=== PATIENT | female | born 1935 | race Caucasian/White ===

== ENCOUNTER → 2016-12-17 | Outpatient (REF) | payer MEDICARE, OTHER ==
[~2016-12-17] MED LIST: ASPI81TA85 PO; AZEL0.1S3; B-1210009 PO; BACITAB3 PO; BACL5TA PO; CALC600T10 PO; COMBAER6 INH; DOCU10CA PO; DOKTAB2 PO; ELES0.05 OU; FISH1000 PO; FLON0.054; FURO20TA2 PO; IPRASOL4 NEB; K-TA10TA2 PO; KLOR1TAB69 PO; LEVOTAB10 PO; META1TAB19 PO; META800T82 PO; MULTCAP PO; NEUR100C PO; NORCOTAB PO; OFLO1DRO3 AU; OMEP40CA2 PO; PEG1POW PO; PERC5TAB6 PO; PERCOCET PO; PRED10TA PO; PRED5TA PO; PRIL20CA9 PO; PRIL20TA2 PO; PROC2.5C PR; RANI150T PO; RANI15TA PO; REST0.05 OU; SENN8.6T76 PO; SKEL-29 PO; TUMS500C PO; VITA-193 PO; VITA100066 PO; VITMTA PO; ZITHTAB PO
== END ==
LOC: M LAB REF 16:30
PROVIDERS: ATTEND Internal Medicine Medical Oncology
DX: D64.9 Anemia, unspecified (principal); C79.31 Secondary malignant neoplasm of brain; C79.51 Secondary malignant neoplasm of bone; C78.7 Secondary malignant neoplasm of liver and intrahepatic bile duct; C34.11 Malignant neoplasm of upper lobe, right bronchus or lung; Z79.899 Other long term (current) drug therapy

== ENCOUNTER → 2016-12-22 | Outpatient (CLI) | payer MEDICARE, OTHER ==
--- NOTE | 2016-12-22 15:34 | REP ---
MR BRAIN WITHOUT AND WITH CONTRAST: HISTORY: Lung carcinoma. CONTRAST: ProHance 10 mL. COMPARISON: 08/20/2016. Diffuse confluent increased signal intensity on T2-weighted images is present in the periventricular and subcortical white matter. This is secondary to chemo and/or radiation therapy. Small areas of increased signal intensity on T2-weighted images are present in the maye. This represents small vessel ischemic disease. There is no intraparenchymal hemorrhage, infarct, mass, or midline shift. There is no abnormal enhancement. A small developmental venous anomaly is present in the right frontal lobe. The ventricular system and cortical sulci are dilated consistent with mild volume loss. There is no extracerebral collection. The sinuses are clear. IMPRESSION:1. There are no metastatic lesions. 2. There is diffuse confluent increased signal intensity in the periventricular and subcortical white matter. This is secondary to chemo and/or radiation therapy. 3. Mild volume loss. Signed by Gonsalo Mcnally MD 12/22/2016 03:36 P
== END ==
LOC: M RAD 13:41
PROVIDERS: ATTEND Nurse Practitioner Family
DX: C34.90 Malignant neoplasm of unspecified part of unspecified bronchus or lung (principal); H53.2 Diplopia
CPT/HCPCS: 70553; A9576

== ENCOUNTER → 2017-01-06 | Outpatient (CLI) | payer MEDICARE, OTHER ==
[~2017-01-06] MED LIST changes: +ISOVUE-370 76% 100ML VIAL (Q9967) As Ordered ONE
--- NOTE | 2017-01-06 12:20 | REP ---
CT STUDY OF THE CHEST WITH IV CONTRAST: HISTORY: Metastatic lung carcinoma. Leg pain. Also, there is apparently a history of lymphoma. Comparison chest CT study is from April 02, 2016. Comparison PET/CT study is from August 27, 2016. CT CONTRAST DOSE: 75 mL of intravenous Isovue-[address] FINDINGS: There is chronic pleuroparenchymal fibrosis, segmental atelectasis, with air bronchograms and some bronchiectasis in the right upper lobe at the apex. Some anterior pleuroparenchymal fibrosis is seen on the right as well. These findings are unchanged. No mass lesion is observed. No pulmonary mass or nodule is observed. There are several ununited or healed rib fractures in the left chest posteriorly. No bony destructive lesion is seen. No hilar or mediastinal mass or adenopathy is observed. No adrenal masses seen. No hepatic lesion is observed. The visualized upper abdominal structures are unremarkable. Mild vascular calcification is seen. Osteoporotic wedging is noted in two lower thoracic vertebrae, unchanged. IMPRESSION: Chronic fibrosis and atelectasis with bronchiectasis right upper lobe at the apex, unchanged. Wedge compression osteoporotic fracture deformities at T10 and L1. These are unchanged. No evidence of mass or adenopathy. Signed by Vito Louis MD 01/06/2017 03:21 P
--- NOTE | 2017-01-06 14:58 | REP ---
WHOLE BODY BONE SCAN: Following the intravenous administration of 21.6 mCi of technetium-99m MDP, patient's whole body is imaged in the anterior and posterior projections. Oblique images of the thoracic and pelvis regions are performed as well as lateral views of the calvarium and feet. Comparison 03/15/2015. There are multiple new bilateral foci of increased uptake in the ribs. Two foci are seen posteriorly in the left 10th rib as well as the left 11th rib. There is a new focus in the anterior end of the left 2nd rib. There are new foci in the right anterior 4th-7th ribs. These are all consistent with rib fractures seen on today's CT scan. There are compression fractures of T10, L1, and L4. There is increased uptake in the left mandible which is of uncertain significance. This may be related to the patient's dentition. Arthritic uptake is seen in the hands and feet. No other abnormal uptake is seen. Renal and bladder activity are seen. IMPRESSION: No compelling evidence for metastatic disease. Increased uptake in the left mandible is likely related to the patient's dentition. Multiple bilateral foci of increased uptake in the ribs compatible with rib fractures. There also to be osteoporotic compression fractures of T10, L1, and L4. Signed by Arthur Hogan MD 01/06/2017 08:12 P
== END ==
LOC: M RAD 10:18
PROVIDERS: ATTEND Nurse Practitioner Family
DX: C34.90 Malignant neoplasm of unspecified part of unspecified bronchus or lung (principal); M79.606 Pain in leg, unspecified
CPT/HCPCS: 71260; 78306; A9503; Q9967

== ENCOUNTER 2017-03-08 18:32 | Inpatient (IN) | payer MEDICARE, OTHER ==
[~2017-03-08] VITALS: Ht 152.4 cm; Wt 42.5 kg
[~2017-03-08 18:32] MED LIST changes: -ISOVUE-370 76% 100ML VIAL (Q9967) As Ordered ONE
[2017-03-08] MEDS ORDERED: PROC5TA PO (18:56)
[2017-03-08] MEDS ORDERED: LEVOTAB10 PO (18:56)
[2017-03-08 19:07] LABS: BASO # 0.1 K/mm3 (0.0-0.2); BASO % 0.4 % (0.0-1.0); EOS # 0.1 K/mm3 (0.0-0.50); EOS % 0.6 % (0.0-3.0); LARGE UNSTAINED CELL # 0.1 K/mm3 (0.0-0.4); LARGE UNSTAINED CELL % 0.8 % (0.0-4.0); LYMPH # 0.7 K/mm3 (1.5-4.5); LYMPH % 4.6 % (24.0-44.0); MEAN CORPUSCULAR HEMOGLOBIN 27.1 pg (27.0-33.0); MEAN CORPUSCULAR HGB CONC 31.6 g/dl (32.0-36.5); MEAN CORPUSCULAR VOLUME 85.6 fl (80.0-96.0); MONO # 0.9 K/mm3 (0.0-0.8); MONO % 6.7 % (0.0-5.0); NEUTROPHILS % 86.9 % (36.0-66.0); PLATELET COUNT, AUTOMATED 402 k/mm3 (150-450); RED CELL DISTRIBUTION WIDTH 13.7 % (11.5-14.5); WHITE BLOOD COUNT 13.8 K/mm3 (4.0-10.0)
[2017-03-08 19:13] LABS: INR 0.94
[2017-03-08 19:17] LABS: ANION GAP 7 MEQ/L (8-16); BLOOD UREA NITROGEN 13 MG/DL (7-18); CALCIUM LEVEL 8.3 MG/DL (8.8-10.2); CARBON DIOXIDE LEVEL 25 MEQ/L (21-32); CHLORIDE LEVEL 97 MEQ/L (98-107); CREATININE FOR GFR 0.49 MG/DL (0.55-1.02); GLOMERULAR FILTRATION RATE > 60.0 (>39); GLUCOSE, FASTING 87 MG/DL (83-110); POTASSIUM SERUM 4.4 MEQ/L (3.5-5.1); SODIUM LEVEL 129 MEQ/L (136-145)
--- NOTE | 2017-03-08 19:30 | REPUSA ---
CT of the head Clinical history: Headache. Comparison: 04/20/2016. Protocol: Multiple axial CT images obtained with 5 mm slice thickness were obtained through the head without administration of contrast. Findings: There are new extra-axial fluid collections bilaterally, consistent with chronic hygromas. These were not seen on the prior study. On the left side, in this fluid collection, there is a minima l amount of hyperdense material which could represent subacute/acute blood This is most prominent in the superior aspect. No intraparenchymal bleedingis noted. The ventricles and sulci are symmetric bu t prominent in size bilaterally. There are periventricular areas of low attenuation throughout the de ep white matter. There is no midline shift, mass effect, or extra-axial fluid collection. The osseous structures are unremarkable. The visualized paranasal sinuses and mastoid air cells are clear. Impression: 1.. Bilateral chronic hygromas, which is new since the prior study of 2016. However, hyperdense mater ial on the left suggest acute/subacute epidural blood within the prior extra-axial fluid collection. Close interval follow-up is recommended. 2. No evidence of intraparenchymal acute hemorrhage or infarct. Findings are consistent with severe a ge-related atrophy and chronic small vessel ischemic disease. ER physician was notified of these findings at 7:20 PM on 03/08/2017.
[2017-03-08] MEDS ORDERED: AZITHROMYCIN INJ 500 MG, VIAL MATE ADAPTER 1 EACH in D5W 250 ML IV ONE (20:15)
[2017-03-08] MEDS ORDERED: cefTRIAXone SOD 2 GM in D5W MINI-BAG PLUS 50 ML IV ONE (20:15)
[2017-03-08] MEDS: predniSONE 5 MG TAB PO SCH (21:00)
[2017-03-08] MEDS: GABAPENTIN 100 MG CAP PO SCH (21:00)
[2017-03-08] MEDS: SENOKOT S TAB PO SCH ×2 (21:00→22:45)
[2017-03-08 21:12] LABS: OSMOLALITY URINE 701 MOSM/KG (500-800)
[2017-03-08] MEDS ORDERED: ACETAMINOPHEN TAB 650MG DOSE (2X325MG) PO PRN (21:15)
[2017-03-08] MEDS ORDERED: LORazepam 2 MG/ML VIAL (J2060) IV STA (21:29)
[2017-03-08] MEDS ORDERED: ALEV220T26 PO (21:47)
[2017-03-08] MEDS ORDERED: PERC5TAB6 PO (21:47)
[2017-03-08] MEDS ORDERED: REST0.05 OU (21:51)
[2017-03-08] MEDS ORDERED: OCUVTAB PO (21:51)
[2017-03-08] MEDS ORDERED: PERCOCET 5MG/325MG TAB PO PRN (22:00)
[2017-03-08] MEDS ORDERED: IPRATROPIUM 0.5MG/ALBUTEROL 2.5MG INH SOL UD 3ML (DUONEB)(J7620) NEB PRN (22:45)
--- NOTE | 2017-03-08 22:50 | REPUSA ---
MRI of the brain Clinical history: Hygromas, possible hemorrhage. Technique: Multiecho multiplanar MRI images of the brain were obtained without administration of cont rast. Diffusion weighted images with ADC mapping was also obtained. Comparison: CT, 03/08/2017. Findings: Severe motion artifact significantly limits evaluation of fine detail on this study. There is no evid ence of restricted diffusion on diffusion weighted imaging. Evaluation of the bilateral cystic hygro mas described on the prior CT examination is highly limited because of this motion artifact. The vent ricles appear grossly symmetric. Chronic small vessel ischemic changes with T2 hyperintensity in the subcortical white matter is seen. Impression: Severely Limited study as described because of motion artifact. No evidence of acute infa rct. Otherwise suboptimal examination.
[2017-03-08 22:53] VITALS: BP 160/87
[2017-03-09] MEDS: ACETAMINOPHEN 650 MG SUPP PR PRN ×2 (01:25→21:51)
--- NOTE | 2017-03-09 05:02 | HPE ---
DATE OF ADMISSION: 03/08/2017 ONCOLOGIST: Dr. Caldwell. PRIMARY CARE PROVIDER: Ibeth Watson DO. CHIEF COMPLAINT: Patient brought in by family because of confusion, altered mental status and garbled and mumbled speech at around 5 p.m. today. PAST MEDICAL HISTORY: 1. 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 2. Rheumatoid arthritis. 3. Irritable bowel syndrome. 4. Compression fractures of the lumbar spine and the thoracic spine T10, L1 and L4. 5. Gastroesophageal reflux disease. 6. Chronic obstructive pulmonary disease (COPD). 7. Chronic anemia. 8. History of recurrent falls with difficulty in ambulation. 9. Osteoporosis. 10. Chronic pain with narcotic dependence. 11. Neuropathy. 12. Vitamin B12 deficiency. HISTORY OF PRESENT ILLNESS: This is a 81-year-old female who was in her usual state of health until this morning when she was last seen by friend and she was noted to have a normal breakfast and read her paper as usual. Then she was alone in the house. She was later seen by family members at around 5 p.m. when they returned home and they found her to be confused having garbled and mumbled speech. When asked questions, she was talking about some unrelated things, so they were concerned about her having a stroke, so was brought in to the emergency room. In the emergency department (ED), patient had a CT scan of the brain done, which showed bilateral hygromas, chronic, with some possible chronic epidural bleed, which was new compared to previous MRI earlier in the year, in December, and previous CT scan in 2016. Dr. Gil from neurosurgery was consulted regarding these new findings and as per his opinion, this was not responsible for her acute altered mentation and did not need any surgical intervention at this point. There was no evidence of intraparenchymal hemorrhage or infarct. Patient's laboratory data was significant for chronic hyponatremia of 129, mild leukocytosis of 13.8 and an elevated C-reactive protein (CRP) of 11.9. Patient's urinalysis (UA) showed 28 red blood cells (RBCs) with only 1 white blood cell (WBC). The patient is being admitted to the hospitalist service for altered mental status to rule out stroke by further MRI/MRA, to rule out any underlying infection causing altered mental status, also rule out any new brain metastases. PAST SURGICAL HISTORY: 1. Bilateral carpal tunnel repair. 2. Liver biopsy in 2010. 3. Cystoscopy. 4. Tonsillectomy. 5. Dilatation and curettage. 6. Cataract surgery. ALLERGIES: To NICKEL. HOME MEDICATIONS: - albuterol ipratropium one solution nebulizer every 2 hours as needed - aspirin 81 mg daily - calcium 600 mg daily - Tums 2000 mg by mouth three times a day - cholecalciferol 1000 units by mouth daily - cyanocobalamin 1000 mcg by mouth once a week - docusate plus 50/8.6 one tablet twice a day - Lasix 20 mg by mouth daily as needed for swelling - gabapentin 100 mg by mouth three times a day - levocetirizine 5 mg by mouth daily - multivitamins one tablet by mouth daily - omeprazole 40 mg by mouth twice a day - oxycodone/acetaminophen 5/325 one tablet by mouth every 4 hours as needed for pain - potassium chloride 10 mEq by mouth daily - prednisone 5 mg by mouth twice a day - prochlorperazine 10 mg by mouth as needed for nausea SOCIAL HISTORY: Patient denies any smoking, any recreational drug use or any alcohol use. FAMILY HISTORY: Not contributory. REVIEW OF SYSTEMS: Patient denied any fever or chills. Patient does complain of a cough going on for about a week. Denied any expectoration. Denied any abdominal pain, nausea, vomiting or diarrhea. Denied any dysuria. Does have chronic back pain. Does have chronic difficulty in ambulation with recurrent falls. The last fall was about 7 days ago. She has some lacerations on both the shins, which have scabbed over now. PHYSICAL EXAMINATION: VITAL SIGNS: Temperature 97, pulse 95, respiratory rate 18, blood pressure 151/68, pulse oximetry 96% in room air. GENERAL: Patient awake, alert, oriented to place, person, and time. HEENT: Normocephalic, atraumatic. Dry mucous membranes. Anicteric eyes. CHEST: There are some basal crackles, otherwise clear to auscultation. CARDIOVASCULAR: S1, S2 regular. No rub, murmur or gallop. ABDOMEN: Soft, nontender, bowel sounds present. EXTREMITIES: No edema. LABORATORY DATA: WBC 13.8, hemoglobin 10.7, platelets 402. Sodium 129, potassium 4.4, chloride 97, bicarbonate 25, BUN 13, creatinine 0.4, glucose 87, lactic 0.7, calcium 8.3. Cardiac enzymes are negative. CRP 11.9. Urinalysis shows 28 RBCs and 1 WBC. Blood cultures and urine cultures have been ordered. Chest x-ray did not show any acute infiltrates. Head CT as mentioned above. ASSESSMENT AND PLAN: This is a 81-year-old female admitted for altered mental status. PLAN: 1. Acute metabolic encephalopathy. We need to rule out infection, rule out stroke and rule out new brain metastases. Patient has been ordered MRI/MRA of the brain. Patient also has been ordered blood cultures and urine cultures. Will empirically cover with ceftriaxone and azithromycin at this point. Patient's CT scan shows new bilateral subdural hygromas. For this, neurosurgery has been consulted and as per neurosurgeon, this is not causing her acute change in mental status and does not need to be surgically drained at this point. 2. Hyponatremia. This is chronic, has been present for at least 2 years and is very mild and is probably not causing her acute alteration of mental status. However, will hold diuretics, that is Lasix for now and put her on fluid restriction. Will also hold naproxen. 3. Rheumatoid arthritis. Will continue with prednisone, pain control with oxycodone/acetaminophen. 4. Neuropathy. Will continue with gabapentin. 5. Chronic obstructive pulmonary disease (COPD). Will continue with as needed albuterol ipratropium inhalation. 6. History of small cell lung cancer with metastases (METS) to brain and liver. Now seems to be in remission, had radiation, chemotherapy about 4-5 years ago. 7. Gastroesophageal reflux disease (GERD). Will continue with omeprazole. 8. Chronic back pain with vertebral compression fractures. Will continue with pain control with oxycodone/acetaminophen. 9. Bilateral chronic hygromas of the brain with possibly subacute epidural blood on the left. To be followed up by neurosurgery and will follow their recommendation. 10. Deep venous thrombosis (DVT) prophylaxis has been ordered. 11. Gastrointestinal (GI) prophylaxis has been ordered.
[2017-03-09 05:09] VITALS: BP 128/71
[2017-03-09 05:34] LABS: BASO % 0.3 % (0.0-1.0); EOS % 0.3 % (0.0-3.0); LARGE UNSTAINED CELL # 0.1 K/mm3 (0.0-0.4); LYMPH # 0.6 K/mm3 (1.5-4.5); MEAN CORPUSCULAR HEMOGLOBIN 27.4 pg (27.0-33.0); MEAN CORPUSCULAR HGB CONC 32.1 g/dl (32.0-36.5); MEAN CORPUSCULAR VOLUME 85.3 fl (80.0-96.0); MONO # 0.8 K/mm3 (0.0-0.8); MONO % 7.4 % (0.0-5.0); NEUTROPHILS # 9.6 K/mm3 (1.8-7.7); PLATELET COUNT, AUTOMATED 370 k/mm3 (150-450); RED CELL DISTRIBUTION WIDTH 13.4 % (11.5-14.5); WHITE BLOOD COUNT 11.1 K/mm3 (4.0-10.0)
[2017-03-09 05:47] LABS: ANION GAP 9 MEQ/L (8-16); BLOOD UREA NITROGEN 12 MG/DL (7-18); CALCIUM LEVEL 8.3 MG/DL (8.8-10.2); CARBON DIOXIDE LEVEL 26 MEQ/L (21-32); CHLORIDE LEVEL 94 MEQ/L (98-107); CREATININE FOR GFR 0.57 MG/DL (0.55-1.02); GLOMERULAR FILTRATION RATE > 60.0 (>39); GLUCOSE, FASTING 101 MG/DL (83-110); POTASSIUM SERUM 3.9 MEQ/L (3.5-5.1); SODIUM LEVEL 129 MEQ/L (136-145)
--- NOTE | 2017-03-09 06:39 | ECGEPIP ---
Stationary ECG Study [facility] - ED Test Date: 2017-03-08 Pat Name: JT URIBE Department: Room: [place] [address] Gender: F Learning Specialist: omer : [id number] Requested By: HAYDEN LOPEZ Order Number: [id number] Reading MD: Maged Reynoso Measurements Intervals Hendricks Rate: 92 P: 62 ME: 155 QRS: 61 QRSD: 69 T: 59 QT: 325 QTc: 402 Interpretive Statements SINUS RHYTHM WITH SINUS ARRHYTHMIA Electronically Signed On 03-09-2017 6:39:06 EDT by Maged Reynoso
[2017-03-09 08:00] VITALS: BP 136/72
[2017-03-09] MEDS: OMEPRAZOLE 20 MG CAP PO SCH (09:00)
[2017-03-09] MEDS: VITAMIN D 1,000 INTERNATIONAL UNITS TABLET PO SCH (09:00)
[2017-03-09] MEDS: predniSONE 5 MG TAB PO SCH ×2 (09:00→21:35)
[2017-03-09] MEDS: GABAPENTIN 100 MG CAP PO SCH ×3 (09:00→21:36)
--- NOTE | 2017-03-09 09:11 | REP ---
PORTABLE CHEST: AP portable view of the chest is performed and compared to prior study of 06/19/2016. Chronic right upper lobe pleural and parenchymal opacity is unchanged. No new infiltrates are seen. There is scattered interstitial fibrosis. Heart is normal in size. Mediastinal silhouette is unchanged. IMPRESSION: Stable chronic findings without evidence of acute infiltrate. Signed by Arthur Hogan MD 03/10/2017 04:00 P
[2017-03-09] MEDS ORDERED: SLF 3 ML SYR IV PRN (10:15)
--- NOTE | 2017-03-09 10:53 | IPN ---
DATE: 03/09/2017 PRIMARY CARE PROVIDER: Dr. Watson. ATTENDING PHYSICIAN: Dr. Mendoza. Rebecca was seen in progressive care unit (PCU). She was admitted with altered mental status, slurred speech and inability to follow commands. I do not know her baseline function but apparently she was quite functional and on the morning of admission was eating her breakfast, reading a newspaper. She was found that evening mumbling, confused, dysarthric. She was brought to the emergency room. CT showed a subacute epidural bleed on top of cystic hygromas. MRI was attempted but quality was poor and we did not get much out of that. Seen by Dr. Gil who does not see neurosurgical intervention necessary at this point. PHYSICAL EXAMINATION: 136/72, pulse 99, respiratory rate 18, 94% oxygen saturation. General appearance: She is lying in bed on her side, arms contracted and she is not following commands. She is mumbling incoherently. Neck is supple. Lungs: Clear. Heart: Regular rate and rhythm. 1/6 systolic ejection murmur. Abdomen: Soft, nontender, no masses, no peripheral edema. I do not see any skin rashes. LABS: Sodium 129 (this is chronic with sodiums usually in the low 130s), potassium 3.9, BUN 12, creatinine 0.5, glucose 101. White count 11.1, hemoglobin 9.9, platelets 370. Urinalysis showed no evidence of infection. Only 1 white cell. IMPRESSION: 1. Metabolic encephalopathy, etiology known. I suspect she has had a stroke. Unfortunately she did not cooperative for MRI scan. She has been seen by neurosurgery. I have ordered another MRI scan for tomorrow, hopefully she will be in a more cooperative state. 2. 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 I cannot oncology, spoke with Valery Munoz, the nurse practitioner that cares for Rebecca. She indicates recently as of 2 months ago, a full workup showed no evidence of active disease with negative MRI of the brain, negative PET scan, negative CT scan. I do not think the current situation is a reflection of her metastatic cancer. 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 and it is important to know that at this point, there is no evidence of any active cancer and the patient appears to be in remission. 3. Rheumatoid arthritis. Patient is having chronic immunosuppressant with low dose prednisone 5 mg twice daily. I do not see where she is on any biologic agents or other immune suppressants but it should be noted that she does have chronic steroid therapy as an outpatient though it is low dose. 4. Fever, etiology unknown. Could be a central fever from the hygromas. I do not think she has encephalitis or meningitis although I need to still consider that a possibility. With the hygromas and subacute epidural hematoma, I think a lumbar puncture would be very risky and without compelling evidence to suggest encephalitis or meningitis, I would not proceed with this. 5. Hyponatremia, chronic due to her diuretics and brain metastases, it has been present for years. 6. Chronic obstructive pulmonary disease (COPD). Continue her inhalers. 7. Chronic back pain with compression fracture. She is on oxycodone/acetaminophen as an outpatient 8. Chronic hygromas arraying with subacute epidural bleeding on the left. Neurosurgery has been consulted and needs to stay involved with her case. 9. Fever, etiologies unknown. She is currently on ceftriaxone and Zithromax. Chest x-ray is clear. There is no compelling evidence of community acquired pneumonia. I am going to stop the Zithromax but will continue the ceftriaxone for broad spectrum antibiotic coverage at this point, though frankly we do not have any known etiology, the urine is clear, the chest x-ray is clear. Again it could be a central fever. Chronic steroid therapy complicates evaluation. Dr. Mendoza will be returning tomorrow. Will assume her care in the morning.
[2017-03-09 12:00] VITALS: BP 142/65
[2017-03-09 12:10] LABS: ALBUMIN 2.7 GM/DL (3.2-5.2); ALBUMIN/GLOBULIN RATIO 0.79 (1.00-1.93); BILIRUBIN,DIRECT 0.1 MG/DL (0.0-0.2); BILIRUBIN,TOTAL 0.4 MG/DL (0.2-1.0); TOTAL PROTEIN 6.1 GM/DL (6.4-8.2)
[2017-03-09] MEDS: SLF 3 ML SYR IV SCH ×2 (13:10→21:52)
[2017-03-09 16:00] VITALS: BP 138/67
[2017-03-09 20:08] VITALS: BP 158/70
[2017-03-09] MEDS ORDERED: AZITHROMYCIN 250 MG TAB PO SCH (21:00)
[2017-03-09] MEDS ORDERED: levETIRAcetam INJection 500 MG in D5W MINI-BAG PLUS 100 ML IV ONE (21:30)
[2017-03-09] MEDS: SENOKOT S TAB PO SCH (21:37)
[2017-03-09] MEDS: NS 1,000 ML IV SCH (21:51)
[2017-03-09] MEDS ORDERED: cefTRIAXone SOD 2 GM in D5W MINI-BAG PLUS 50 ML IV SCH (22:00)
--- NOTE | 2017-03-09 22:00 | REPUSA ---
MRI of the brain Clinical history: Change in mental status. Technique: Multiecho multiplanar MRI images of the brain were obtained without administration of con trast. Diffusion weighted images with ADC mapping was also obtained.. Comparison: MRI, 03/08/2017. CT, 03/08/2017. Findings: The ventricles and sulci are symmetric bilaterally. The brain parenchyma demonstrates diffuse increas ed T2 hyperintensity throughout the subcortical white matter. Moderate sized bilateral extra-axial fl uid collections are again noted, and are stable since the prior CT examination. There is no midline s hift or mass effect collection. The midline intracranial structures do not demonstrate any gross abno rmalities. The cervical cranial junction is intact. The orbits are unremarkable. The visualized paran thania sinuses and mastoid air cells are clear. The osseous structures and superficial soft tissues are unremarkable. The vascular structures demonstrate appropriate flow voids. Impression: 1. No focal evidence of acute infarct. 2. The bilateral chronic hygromas seen on the prior CT examination appear grossly stable in size. No discrete evidence of hemosiderin to suggest a more acute hemorrhage is identified at this time. 3. Moderately severe chronic small vessel ischemic changes.
[2017-03-09 23:59] VITALS: BP 136/63
[2017-03-10] MEDS: SLF 3 ML SYR IV SCH ×3 (04:22→21:57)
[2017-03-10 04:29] VITALS: BP 108/50
[2017-03-10 05:31] LABS: BASO % 0.2 % (0.0-1.0); EOS # 0.1 K/mm3 (0.0-0.50); EOS % 0.7 % (0.0-3.0); LARGE UNSTAINED CELL # 0.2 K/mm3 (0.0-0.4); LARGE UNSTAINED CELL % 1.7 % (0.0-4.0); LYMPH # 0.7 K/mm3 (1.5-4.5); LYMPH % 6.9 % (24.0-44.0); MEAN CORPUSCULAR HEMOGLOBIN 27.9 pg (27.0-33.0); MEAN CORPUSCULAR HGB CONC 32.8 g/dl (32.0-36.5); MEAN CORPUSCULAR VOLUME 85.2 fl (80.0-96.0); MONO # 0.9 K/mm3 (0.0-0.8); MONO % 9.4 % (0.0-5.0); NEUTROPHILS # 7.6 K/mm3 (1.8-7.7); NEUTROPHILS % 81.1 % (36.0-66.0); PLATELET COUNT, AUTOMATED 353 k/mm3 (150-450); RED CELL DISTRIBUTION WIDTH 13.3 % (11.5-14.5); WHITE BLOOD COUNT 9.4 K/mm3 (4.0-10.0)
[2017-03-10 05:41] LABS: ANION GAP 11 MEQ/L (8-16); BLOOD UREA NITROGEN 15 MG/DL (7-18); CALCIUM LEVEL 8.2 MG/DL (8.8-10.2); CARBON DIOXIDE LEVEL 23 MEQ/L (21-32); CHLORIDE LEVEL 96 MEQ/L (98-107); CREATININE FOR GFR 0.57 MG/DL (0.55-1.02); GLOMERULAR FILTRATION RATE > 60.0 (>39); GLUCOSE, FASTING 91 MG/DL (83-110); POTASSIUM SERUM 3.7 MEQ/L (3.5-5.1); SODIUM LEVEL 130 MEQ/L (136-145)
[2017-03-10 08:00] VITALS: BP 128/58
[2017-03-10] MEDS: OMEPRAZOLE 20 MG CAP PO SCH (09:00)
[2017-03-10] MEDS: predniSONE 5 MG TAB PO SCH ×2 (09:00→19:34)
[2017-03-10] MEDS: SENOKOT S TAB PO SCH ×2 (09:00→19:34)
[2017-03-10] MEDS: GABAPENTIN 100 MG CAP PO SCH ×3 (09:00→19:34)
[2017-03-10] MEDS ORDERED: levETIRAcetam 250MG TABLET (KEPPRA) PO SCH (09:00)
[2017-03-10] MEDS: VITAMIN D 1,000 INTERNATIONAL UNITS TABLET PO SCH (09:00)
--- NOTE | 2017-03-10 09:47 | REP ---
PORTABLE CHEST: AP portable view of the chest is performed. Right apical pleural and parenchymal opacity is stable. There is no new infiltrate. Diffuse interstitial fibrosis is stable. The heart is normal in size. There is mild calcification of the thoracic aorta. Mediastinal silhouette is unchanged. IMPRESSION: Stable exam. Signed by Arthur Hogan MD 03/10/2017 04:06 P
[2017-03-10] MEDS: levETIRAcetam INJection 500 MG in D5W MINI-BAG PLUS 100 ML IV SCH ×2 (11:00→22:31)
[2017-03-10] MEDS: NS 1,000 ML IV SCH (11:36)
[2017-03-10 11:40] VITALS: BP 140/67
[2017-03-10] MEDS: ACYCLOVIR 500 MG in D5W MINI-BAG PLUS 100 ML IV SCH ×2 (15:00→22:31)
[2017-03-10 16:02] VITALS: BP 127/61
--- NOTE | 2017-03-10 19:08 | IPN ---
DATE: 03/10/2017 Patient seen and examined. Was febrile overnight with increasing lethargy, arousable to sternal rubs, but no further history possible. Patient withdraws from pain, but not really following commands. VITAL SIGNS: Temperature 97.8, maximum temperature (Tmax) 102, pulse 93, respirations 22, blood pressure 127/61, pulse oximetry 89% on room air. LABORATORY DATA: WBC 9.4, hemoglobin and hematocrit 9.7/29.6, platelets 353. Chemistry: Sodium 130, potassium 3.7, chloride 96, bicarbonate 23, BUN 15, creatinine 0.57, C-reactive protein 17.1. PHYSICAL EXAMINATION: GENERAL: Patient lethargic, arousable to sternal rubs, but goes right back to sleep. Pupils are bilaterally equal and reactive. HEENT: Normocephalic, atraumatic. Pale. Neck supple. PULMONARY: Bilaterally clear to auscultation. CARDIAC: Regular rate and rhythm. 1/6 systolic ejection murmur. ABDOMEN: Soft, nontender. No masses. EXTREMITIES: No edema bilateral lower extremities. 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 Patient was in her usual state of health until the morning of admission, was found by the family, confused and lethargic, with garbled, mumbling speech. 1. Lethargy, possibly secondary to metabolic encephalopathy. MRI was showing no stroke. Will followup EEG. Possibly secondary to underlying infection. Patient currently on Rocephin and acyclovir. Infectious disease, Dr. Butler, has been consulted. Followup blood cultures. Urinalysis has been negative. Unfortunately, after discussing with Dr. Gil, given patient has bilateral chronic hygromas with questionable epidural bleed, would recommend against lumbar puncture if at all possible given risk of herniation. If lumbar puncture is determined to be really necessary, as per Dr. Gil, take out no more than 1-2 mL of fluids, but it could be difficult and dangerous. Case was discussed with patient's family. As of right now, family does not want the patient to undergo such procedure given the risk outweighs the benefit. Infectious disease has been consulted. Patient currently is nothing by mouth given patient is not able to be arousable enough to tolerate any oral. Will continue to monitor. Patient is DO NOT RESUSCITATE. After discussing with the family, it was determined that if the patient does not improve, patient would not want to be fed artificially, subsequently comfort measures only discussion will be held. IV hydration has been ordered. 2. History of small cell lung cancer with metastasis to the liver. Dr. Villalta has discussed with oncology nurse practitioner, Valery Munoz. As of 2 months ago, full workup showed no evidence of active disease, with negative MRI, negative PET scan, negative CT scans. Likely the current situation is due to metastatic cancer, but unfortunately the MRI was done without contrast, but likely the current episode is due to metastatic lesion. 3. Rheumatoid arthritis. Patient is having chronic immunosuppression with low dose prednisone but was not on any biologics. Supportive care. Outpatient followup. 4. Fever of unknown etiology. Infectious disease, Dr. Butler, has been consulted. Urinalysis has been negative. Fever could be secondary to hygromas, but unfortunately cannot perform lumbar puncture for the reasons discussed above. Given the subacute epidural hematoma and also hygromas, lumbar puncture is very risky. Risks and benefits have been discussed with the patient's family. 5. Hyponatremia, chronic due to diuresis and possible brain metastasis. Currently stable. 6. Chronic obstructive pulmonary disease (COPD). Continue medication as ordered. 7. Chronic back pain and compression fracture. Patient is on outpatient pain medication but seems to not be in any distress. 8. Chronic hygromas with subacute epidural bleed. Neurosurgery has been consulted and needs to stay involved in her care, but as of right know, as per Dr. Gil, no surgical intervention necessary, but patient has been started on Keppra. Neurology, Dr. Jacob, has been consulted. EEG has been ordered. MRI appreciated. 9. Deep venous thrombosis (DVT) prophylaxis. Given subacute epidural hematomas, will elect against any anticoagulation. Sequential compression device for deep venous thrombosis (DVT) prophylaxis. DISPOSITION: Patient will multiple comorbidities. Poor overall prognosis.
[2017-03-10 19:57] VITALS: BP 134/66
[2017-03-10] MEDS: cefTRIAXone SOD 2 GM in D5W MINI-BAG PLUS 50 ML IV SCH (21:57)
--- NOTE | 2017-03-10 22:25 | CR ---
DATE OF CONSULTATION: 03/10/2017 REASON FOR CONSULTATION: Altered mental status. HISTORY OF PRESENT ILLNESS: Rebecca Garcia is a 81-year-old female with past medical history significant for small cell lung carcinoma with metastasis to the liver and brain, status post radiation and chemotherapy. The patient has been in remission. She was in her normal baseline state of health and was seen to be normal in the morning. The patient, on the day of admission, was found by her family sitting at home with garbled and mumbled speech with right upper extremity weakness. The patient was seen by emergency personnel who felt the patient was starting to improve as they were speaking with her. She was thought to be postictal. Two MRI scans of the brain within [facility] have not demonstrated any acute intracranial pathology other than what appears to be prior documented hygromas bilaterally with possibility of chronic subacute subdural hematoma versus epidural hematoma based on report. The patient has been quite lethargic since the admission. She was noted to be conversive in the emergency room (ER) but has been lethargic, sleepy and hard to arouse. She had a temperature of 100.8. The patient did not have any nuchal rigidity. Initially, there was a slight white count, which was later normal. The patient has been started empirically on acyclovir as well as continued on ceftriaxone. Due to the presence of bilateral hygromas, Dr. Gil, neurosurgeon, recommended to Dr. Dian Mendoza to perform a spinal tap without removing much fluid. The family does not wish to pursue a spinal tap at this time. The patient was seen at bedside today and was able to open her eyes upon command. She was able to extend her left hand and arm to shake my hand upon request. She is moving her right arm and leg less intensely than her left side. The patient does withdraw all four extremities to noxious stimuli. She is nonverbal presently. She does not answer any questions. Her eyes appear to be midline. She is able to look up towards me and make eye contact. She does not have any rhythmic movement of the right upper extremity. PAST MEDICAL HISTORY: Small cell lung carcinoma with metastasis to liver and brain, currently in remission. Rheumatoid arthritis. Irritable bowel syndrome. Compression fracture of lumbar spine and thoracic spine T10, L1, L4. Gastroesophageal reflux disease. Chronic obstructive pulmonary disease. Chronic anemia. History of recurrent falls with difficulty in ambulation. Chronic pain and narcotic dependence. Neuropathy. B12 deficiency. Baseline hyponatremia. PAST SURGICAL HISTORY: Bilateral carpal tunnel repair. Liver biopsy 2010. Cystoscopy. Tonsillectomy. Dilation and curettage. Cataract surgery. ALLERGIES: NICKEL. HOME MEDICATIONS: - gabapentin 100 mg by mouth three times a day - Lasix 20 mg by mouth daily - cyanocobalamin 1000 mcg by mouth weekly - cholecalciferol 1000 units by mouth daily - calcium 600 mg by mouth daily - TUMS 2000 mg by mouth three times a day - aspirin 81 mg by mouth daily - albuterol/ipratropium nebulizer every 2 hours as needed - levocetirizine 5 mg by mouth daily - multivitamin by mouth daily - omeprazole 40 mg by mouth twice a day - oxycodone/acetaminophen 5-325 mg as needed for pain - potassium chloride 10 mEq by mouth daily - prednisone 5 mg by mouth twice a day - prochlorperazine 10 mg as needed for nausea REVIEW OF SYSTEMS: Unable to obtain due to current cognitive status. SOCIAL HISTORY: The patient does not smoke, drink alcohol or use recreational drugs. FAMILY HISTORY: Noncontributory. PHYSICAL EXAMINATION: Blood pressure is 127/61, pulse rate 93, respiratory rate 22, temperature is 97.8 degrees Fahrenheit, 89% oxygenation on room air. The patient is able to open her eyes to voice and to tactile stimuli of her arms and legs. She is nonverbal. She can follow commands and squeeze my hand with her left side. She does not follow commands to wiggle her toes. She does withdraw to noxious stimuli in all four extremities. She is able to reach out and shake my hand with her left hand upon command. The patient is nonverbal. Pupils are 3 mm, round and reactive to light. The patient is able to activate the face see symmetrically. There is increased paratonia of the right upper extremity. Babinski signs are present bilaterally. Sensory is intact to noxious stimuli in four extremities. Gait, coordination: Deferred. Deep tendon reflexes are increased in the lower extremities and upper extremities. ASSESSMENT: A 81-year-old female with altered mental status with right-sided hemiparesis, new for the patient, presenting with altered mental status, possible seizure on presentation with Edwin's paralysis on the right side. Cannot entirely exclude hygromas with new hemorrhagic component producing mass effect on the brain causing progressive weakness. Altered mental status secondary to brain atrophy. New medications including Keppra, ceftriaxone and baseline hyponatremia contributing towards metabolic encephalopathy. PLAN 1. Followup recommendations for a spinal tap as per neurosurgery. 2. Followup results of electroencephalogram (EEG). 3. Continue Keppra 500 mg by mouth twice a day. 4. I spoke with Dr. Mendoza directly who will be looking into the patient's baseline hyponatremia and further management of that. 5. The patient appears to be improving cognitively as per the family at bedside. At the present time, Dr. Mendoza will be rediscuss possibility of spinal tap to determine if acyclovir or antibiotics are necessary at this time. 6. There is no nuchal rigidity on examination. 7. Consider repeating head CT tomorrow morning to assess for any interval change in the hemorrhagic collection over the left frontal hygroma.
[2017-03-10 23:45] VITALS: BP 122/56
[2017-03-11] MEDS: NS 1,000 ML IV SCH (04:30)
[2017-03-11] MEDS: SLF 3 ML SYR IV SCH ×3 (04:30→23:24)
[2017-03-11 04:48] VITALS: BP 119/55
[2017-03-11 05:42] LABS: BASO % 0.5 % (0.0-1.0); EOS # 0.1 K/mm3 (0.0-0.50); EOS % 1.4 % (0.0-3.0); LARGE UNSTAINED CELL # 0.1 K/mm3 (0.0-0.4); LARGE UNSTAINED CELL % 1.4 % (0.0-4.0); LYMPH # 0.6 K/mm3 (1.5-4.5); LYMPH % 5.8 % (24.0-44.0); MEAN CORPUSCULAR HEMOGLOBIN 26.9 pg (27.0-33.0); MEAN CORPUSCULAR HGB CONC 32.1 g/dl (32.0-36.5); MEAN CORPUSCULAR VOLUME 83.8 fl (80.0-96.0); MONO # 0.7 K/mm3 (0.0-0.8); MONO % 8.6 % (0.0-5.0); NEUTROPHILS # 6.6 K/mm3 (1.8-7.7); NEUTROPHILS % 82.3 % (36.0-66.0); PLATELET COUNT, AUTOMATED 339 k/mm3 (150-450); RED CELL DISTRIBUTION WIDTH 13.4 % (11.5-14.5); WHITE BLOOD COUNT 8.1 K/mm3 (4.0-10.0)
[2017-03-11 05:56] LABS: ANION GAP 8 MEQ/L (8-16); BLOOD UREA NITROGEN 10 MG/DL (7-18); CALCIUM LEVEL 7.9 MG/DL (8.8-10.2); CARBON DIOXIDE LEVEL 24 MEQ/L (21-32); CHLORIDE LEVEL 99 MEQ/L (98-107); CREATININE FOR GFR 0.47 MG/DL (0.55-1.02); GLOMERULAR FILTRATION RATE > 60.0 (>39); GLUCOSE, FASTING 77 MG/DL (83-110); POTASSIUM SERUM 3.6 MEQ/L (3.5-5.1); SODIUM LEVEL 131 MEQ/L (136-145)
[2017-03-11] MEDS: ACYCLOVIR 500 MG in D5W MINI-BAG PLUS 100 ML IV SCH ×3 (06:07→23:24)
[2017-03-11 08:00] VITALS: BP 126/65
--- NOTE | 2017-03-11 08:34 | EEG ---
DATE OF PROCEDURE: 03/10/2017 REFERRING PHYSICIAN: Dr. Dian Mendoza DIAGNOSIS: Seizure. EEG NUMBER: [id number] HISTORY: Patient is a 81-year-old woman who was admitted at [facility] after being found confused with garbled speech. This EEG was done to rule out epileptic potential. Her current medication list was not provided. TECHNICAL DESCRIPTION: This digital EEG was recorded by 21 scalp, ear and two EKG electrodes and was reviewed in bipolar and referential montages following reformatting in 10-20 international electrode placement system. INTERPRETATION: The patient was noted to be in awake and drowsy states during this EEG. Resting awake background rhythm consisted of 5-6 Hz theta activity measuring 15-40 microvolts in amplitude. Left parietal and temporal delta slowing was noted. Stage 2 sleep was recorded and showed attenuation of sleep activity in left parietal and temporal head regions. Hyperventilation could not be performed. Photic stimulation remained unremarkable. EKG revealed normal sinus rhythm. No clear epileptiform abnormalities were seen. No clinical or electrographic seizures were recorded. CONCLUSION: This EEG in awake, drowsy states, stage II sleep is abnormal due to presence of mild generalized slowing with superimposed left parietal and temporal delta slowing consistent with focal, cortical, structural or functional abnormality in the left parietal and temporal head regions. In addition, mild generalized slowing is indicative of mild diffuse cerebral dysfunction such as seen in encephalopathy due to multiple potential causes including toxic, metabolic, autoimmune, infectious or multifocal structural abnormalities. No clear epileptiform abnormalities were seen. Clinical correlation is recommended.
--- NOTE | 2017-03-11 09:08 | REP ---
Noncontrast head CT study: History: Repeat exam for follow-up. Comparison brain CT study is from March 08, 2017. Prior exam from June 19, 2016 is also reviewed. Findings: No skull fracture or bony destructive lesion is seen. There is some vascular calcification again noted in the carotid siphons. The visualized paranasal sinuses remain clear. No intraorbital abnormality is seen. Soft tissue window settings again demonstrate moderate size bilateral acute on subacute subdural hematomas. The acute hyperdensity component of the left subdural hematoma is essentially unchanged, perhaps slightly less opaque when compared with the recent prior study of March 08, 2017. Overall size of the left subdural collection is unchanged. It is a large collection measuring up to 12 mm in greatest thickness. It extends from the vertex to the inferior aspect of the middle cranial fossa and anterior cranial fossa and almost completely from anterior to posterior. The smaller hyperdense acute component of the subacute subdural hematoma on the right is also unchanged from the recent prior study. No new hyperdense hemorrhage is seen. Overall size is unchanged as well. The right subdural collection measures up to 10 mm in thickness and is almost as extensive as the left although smaller. Subjectively the midline appears to be shifted slightly to the right. This only measures 1 mm however. There is small vessel atherosclerotic change and diffuse atrophy. No parenchymal hemorrhage is seen. Posterior fossa is unchanged and apart from atrophy, remains unremarkable. Impression: Moderate to large bilateral acute on subacute subdural hematomas unchanged from the recent prior study of March 08, 2017. Signed by Vito Louis MD 03/11/2017 04:32 P
[2017-03-11] MEDS: OMEPRAZOLE 20 MG CAP PO SCH (09:54)
[2017-03-11] MEDS: predniSONE 5 MG TAB PO SCH ×2 (09:54→20:26)
[2017-03-11] MEDS: GABAPENTIN 100 MG CAP PO SCH ×3 (09:54→20:26)
[2017-03-11] MEDS: VITAMIN D 1,000 INTERNATIONAL UNITS TABLET PO SCH (09:55)
[2017-03-11] MEDS: SENOKOT S TAB PO SCH ×2 (09:55→20:26)
[2017-03-11] MEDS: cefTRIAXone SOD 2 GM in D5W MINI-BAG PLUS 50 ML IV SCH ×2 (10:08→23:24)
[2017-03-11] MEDS: KCL 20MEQ in NS 1000ML 1,000 ML IV SCH ×2 (10:08→23:22)
[2017-03-11] MEDS: levETIRAcetam INJection 500 MG in D5W MINI-BAG PLUS 100 ML IV SCH ×2 (11:53→23:25)
[2017-03-11 12:00] VITALS: BP 129/60
--- NOTE | 2017-03-11 13:39 | REP ---
MRI study of the brain with IV gadolinium: History: Question metastatic cancer. Known subacute subdural hematomas. Comparison MRI study: March 09, 2017. Gadolinium enhancement dose: 8.6 ml of intravenous ProHance. Findings: Axial, coronal and sagittal imaging planes are used utilized for T1-weighted post gadolinium enhanced imaging. Normal gadolinium enhancement is seen in vascular structures. There is no evidence of intracranial parenchymal mass lesion or parenchymal enhancement. There is some dural enhancement associated with the bilateral subdural hematomas most conspicuous on the coronal imaging plane. Impression: No evidence of intracranial metastatic disease. Signed by Vito Louis MD 03/11/2017 04:33 P
[2017-03-11 14:45] LABS: GLUCOSE CSF 48 MG/DL (40-75)
[2017-03-11 14:57] LABS: RBC CSF AUTO 18 /mm3 (0-0); WBC CSF AUTO 132 /mm3 (0-10)
[2017-03-11 14:58] LABS: APPEARANCE, CSF CLEAR (CLEAR); COLOR, CSF COLORLESS (COLORLESS); CSF DIFF IF INDICATED? YES (NO); CSF TUBE# CELL CNT TUBE 1
[2017-03-11 15:00] LABS: CSF DILUENT LOT # 6165
[2017-03-11 16:00] VITALS: BP 122/65
[2017-03-11 20:00] VITALS: BP 178/84
[2017-03-12] VITALS: BP 163/80
--- NOTE | 2017-03-12 00:58 | IPN ---
DATE: 03/11/2017 Patient seen and examined. No acute events overnight. As per nursing staff, patient seems to be more arousable lately. Able to be aroused through verbal stimuli. Does not seem to be in any distress but still quite lethargic. Follows simple commands when pushed. VITAL SIGNS: Temperature 98.6, pulse 85, respirations 20, blood pressure 122/65, pulse oximetry 95% on room air. LABORATORY DATA: WBC 8.1, hemoglobin and hematocrit 9/28, platelets 339. Chemistry: Sodium 131, potassium 3.6, chloride 99, bicarbonate 24, BUN 10, creatinine 0.47. PHYSICAL EXAMINATION: GENERAL: Patient lethargic but arousable to verbal stimuli in no acute distress. Pupils bilaterally equal and reactive. HEENT: Normocephalic, atraumatic. Pale. NECK: Supple. PULMONARY: Bilaterally clear to auscultation. CARDIAC: Regular rate and rhythm. A 1/6 systolic ejection murmur. ABDOMEN: Soft, nontender, nondistended. EXTREMITIES: No edema, bilateral lower extremities. Patient's right upper extremity seems to be slightly weaker, but examination was significantly limited secondary to patient's mental status. ASSESSMENT AND PLAN: This is a 81-year-old female patient with underlying medical history of small-cell lung cancer within metastasis to the liver and to the brain, rheumatoid arthritis, irritable bowel syndrome, compression fracture of the lumbar spine, thoracic spine at T10, L1, L4, gastroesophageal reflux disease (GERD), chronic obstructive pulmonary disease (COPD), chronic anemia, recurrent falls, difficulty ambulating, osteoporosis, chronic pain, narcotic dependence, neuropathy, vitamin B12 deficiency. Patient was in her usual state of health until the morning of admission. Found by family to be confused and lethargic and with garbled and mumbling speech. 1. Lethargy, encephalopathy, possibly secondary to underlying infection with metabolic encephalopathy. MRI of the brain without contrast and with gadolinium have both been appreciated. No metastatic disease has been found. No active stroke. Electroencephalogram (EEG) appreciated with metabolic encephalopathy and slowing. Lumbar puncture (LP) is appreciated. Shows questionable infection, but after discussing with Dr. Gil, as per Dr. Gil, hygromas can also show positive white blood cells (WBC), but patient did spike a fever. Patient currently on Rocephin and acyclovir. Antibiotics as per infectious disease. Dr. Butler, infectious disease, has been consulted. Encephalitis and meningitis panel have been sent. Followup blood cultures and fluid cultures. Urinalysis (UA) has been negative. Case was discussed with neurosurgery and neurology. As per Dr. Jacob, neurology, given patient's left-sided hygroma seems to be a bit bigger than the right, potentially causing mass effect with also contralateral right upper quadrant weakness, Dr. Jacob was wondering if neurosurgery will be considering surgery, but, as per neurosurgery, patient's hygroma has been chronic, and patient has been walking with the above findings. Family with last discussion opted against any procedure, and especially when active infection cannot be ruled out. Will wait for encephalitis and meningitis panel to be coming back tomorrow. Case discussed with Dr. Gil, Dr. Jacob, and Dr. Butler. Patient is DO NOT RESUSCITATE/DO NOT INTUBATE, and, as per family, patient would not want any artificial nutrition or artificial ventilation. Continue antibiotics as above, intravenous (IV) hydration. Patient's mental status seems to be improving with the above treatment. 2. 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 Dr. Villalta has discussed with oncology nurse practitioner. As of 2 months ago, patient has been in remission with no evidence of active disease, negative MRI, negative PET scan, and negative CT scan. MRI of the brain with gadolinium has been negative for metastasis. 3. Rheumatoid arthritis. Patient is having chronic immunosuppression with low-dose prednisone but not on any biologics. Supportive care. Outpatient followup if patient survives. 4. Fever of unknown etiology. Case discussed with infectious disease, Dr. Butler. Fever could be secondary to hygromas. Lumbar puncture has been done. Only 2 mL of fluid has been removed as per neurosurgery recommendation. Will followup encephalitis/meningitis panel. 5. Hyponatremia, chronic due to diuresis and possible brain metastasis, currently stable. 6. COPD. Continue medication as ordered. 7. Chronic back pain. Will restart outpatient medication once patient is tolerating oral. Patient seems to be not in any pain at this moment. 8. Chronic hygromas and subacute epidural bleed. Neurosurgery has been consulted and needs to stay involved in her care, but as of right now, as per Dr. Gil, no surgical intervention necessary, as patient is started on Keppra. Neurology, Dr. Jacob, has been consulted. EEG appreciated. Need to rule out infectious etiology first, and as per Dr. Gil, patient has been walking around with the hygromas, which is virtually unchanged. Once the infectious etiology is ruled out, will consider further neurosurgical intervention, if it is the family's wish. 9. Deep vein thrombosis (DVT) prophylaxis. Given subcutaneous epidural hematomas, will elect against any anticoagulation. Sequential compression devices for DVT prophylaxis. DISPOSITION: Patient with multiple comorbidities. Poor overall prognosis. Pending further testing.
[2017-03-12 04:00] VITALS: BP 167/76
[2017-03-12 05:14] LABS: BASO % 0.2 % (0.0-1.0); EOS # 0.2 K/mm3 (0.0-0.50); EOS % 1.9 % (0.0-3.0); LARGE UNSTAINED CELL # 0.1 K/mm3 (0.0-0.4); LARGE UNSTAINED CELL % 1.2 % (0.0-4.0); LYMPH # 0.4 K/mm3 (1.5-4.5); LYMPH % 4.8 % (24.0-44.0); MEAN CORPUSCULAR HEMOGLOBIN 27.6 pg (27.0-33.0); MEAN CORPUSCULAR HGB CONC 32.7 g/dl (32.0-36.5); MEAN CORPUSCULAR VOLUME 84.5 fl (80.0-96.0); MONO # 0.7 K/mm3 (0.0-0.8); MONO % 8.3 % (0.0-5.0); NEUTROPHILS # 7.1 K/mm3 (1.8-7.7); NEUTROPHILS % 83.5 % (36.0-66.0); PLATELET COUNT, AUTOMATED 352 k/mm3 (150-450); WHITE BLOOD COUNT 8.5 K/mm3 (4.0-10.0)
[2017-03-12 05:28] LABS: ANION GAP 9 MEQ/L (8-16); BLOOD UREA NITROGEN 6 MG/DL (7-18); CALCIUM LEVEL 7.9 MG/DL (8.8-10.2); CARBON DIOXIDE LEVEL 21 MEQ/L (21-32); CHLORIDE LEVEL 96 MEQ/L (98-107); GLOMERULAR FILTRATION RATE > 60.0 (>39); GLUCOSE, FASTING 84 MG/DL (83-110); MAGNESIUM LEVEL 1.7 MG/DL (1.8-2.4); POTASSIUM SERUM 3.9 MEQ/L (3.5-5.1); SODIUM LEVEL 126 MEQ/L (136-145)
--- NOTE | 2017-03-12 05:36 | RO ---
DATE OF PROCEDURE: 03/11/2017 PREOPERATIVE DIAGNOSIS: Fever with encephalopathy. POSTOPERATIVE DIAGNOSIS: Fever with encephalopathy. PROCEDURE PERFORMED: Diagnostic lumbar puncture. SURGEON: Dian Mendoza MD DRUM LOADER AND UNLOADER: Mendy, registered nurse. VENTILATION: None. ANESTHETIC: 1% local lidocaine. SEDATION: None. DESCRIPTION OF PROCEDURE: Preprocedural the risk and benefit has been discussed and with infectious disease Dr. Butler, neurology Dr. Jacob and neurosurgery Dr. Gil, with her consensus patient will benefit from diagnostic lumbar puncture to rule out infectious process in cerebrospinal fluid (CSF), but given patient's hygromas and chronic bleed epidural, case was discussed with neurology and neurosurgery Dr. Jacob and Dr. Gil. It is decided per neurosurgery, it is probably safe taking out 2 mL of CSF with a small rip spinal needle. CTs and MRI has been done as well as MRI of the brain with gadolinium to rule out metastasis. EEG has also been done. The case was discussed with the patient's family, the patient's daughter. The risks include bleeding, infection, headache, CSF leaks, neuro damage, herniation and , but given that all providers listed above believe that risk and the benefit the risk is acceptable given that only 2 mL of fluids will be removed and a diagnosis is needed in this case for the patient to guide further therapy. The family is agreeable to the procedure and is aware of the risk. Subsequently, procedure was performed. Patient is placed in the left lateral decubitus position with assistance. Site is cleaned three times with Betadine and covered sterilely. 1% lidocaine was injected first superficially, then deep injection with landmark of spinous process and also superior iliac crest to locate L4, L5. Subsequently, a 22 rip, 3-1/2 inches spinal needle was used, checking for fluid return every millimeters the needle was advanced and CSF fluid was obtained. A total of 2 mL, 1 mL in each tube and subsequently, needle was removed. Dressing was placed. Nursing staff was instructed to place the patient in supine position for the next 4 hours. Patient tolerated the procedure with no complication. [facility]
[2017-03-12] MEDS: ACYCLOVIR 500 MG in D5W MINI-BAG PLUS 100 ML IV SCH (06:30)
[2017-03-12] MEDS: SLF 3 ML SYR IV SCH ×3 (06:30→23:40)
[2017-03-12] MEDS ORDERED: MAG SULF 1GM/100ML (MAG RUN) 1 GM in APPROPRIATE DILUENT 1 EA IV ONE (07:30)
[2017-03-12 08:00] VITALS: BP 181/79
[2017-03-12] MEDS: KCL 20MEQ in NS 1000ML 1,000 ML IV SCH (08:12)
[2017-03-12] MEDS: OMEPRAZOLE 20 MG CAP PO SCH (08:54)
[2017-03-12] MEDS: GABAPENTIN 100 MG CAP PO SCH (08:54)
[2017-03-12] MEDS: SENOKOT S TAB PO SCH ×2 (08:54→19:13)
[2017-03-12] MEDS: predniSONE 5 MG TAB PO SCH (08:54)
[2017-03-12] MEDS: VITAMIN D 1,000 INTERNATIONAL UNITS TABLET PO SCH (08:55)
--- NOTE | 2017-03-12 09:10 | CR.PDOC ---
General Reason for Consultation/CC The patient is a 81-year-old female admitted with a reason for visit of Stroke; Subdural Hygroma. 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 Pt was admitted after ictal event and developed R sided hemiparesis. Over t he course in the hospital, neurological status has not returned to level prior to admission. PHYSICAL EXAMINATION: VITAL SIGNS: Please see below. AVSS. GENERAL APPEARANCE: . NEUROLOGICAL: [id number]= 9. INOCENCIO. Not following commands, however, moving all her limbs with pain stimuli. Muscle tone present in all her limbs. She is mumbling when attempting to communicate with her. LABORATORY DATA: Please see below. Na+= 126 NEUR[address]IMAGING: CT brain- lateral chronic head trauma with minute amount of new bleeding without mass effect, brain atrophy, no hydrocephalus. MRI brain- no evidence of intracerebral mets lesion IMPRESSION: 1. Bilaterally chronic hydromas 2. Hyponatremia PLAN/RECOMMENDATIONS: 1. No evidence of new bleeding. No need to hydroma drainage. 2. Hyponatremia- needs to be treated appropriately by primary team. NSx service will sign off. If pt primary team after treatment of her underlying conditions will require reassessment, please contact us. Thank you for the consultation. Dr Jaimie Carlos, RPA-C Vital Signs/I&O Vital Signs Date Time Temp Pulse Resp B/P (MAP) Pulse Ox O2 Delivery O2 Flow Rate FiO2 03/12/17 08:00 98.1 88 17 181/79 (113) 95 Room Air I&O- Last 24 Hours up to 6 AM 03/12/17 05:59 Intake Total 2220 ml Balance 2220 ml Laboratory Data 24H Labs Laboratory Tests 2 03/11/17 14:19: CSF Appearance CLEAR, CSF Color COLORLESS, CSF WBC 132H, CSF RBC 18H, CSF Glucose (Tube 1) TUBE 2, CSF Total Protein (Tube 1) TUBE 2, CSF Cell Count Tube # TUBE 1, CSF Neutrophils % 76.0H, CSF Lymphocytes % 6.0H, CSF Monocytes % 16.0H , CSF Eosinophils % 1.0H, CSF Glucose 48, CSF Total Protein 111.5H 03/12/17 05:01: White Blood Count 8.5, Red Blood Count 3.67L, Hemoglobin 10.1L, Hematocrit 31.0L , Mean Corpuscular Volume 84.5, Mean Corpuscular Hemoglobin 27.6, Mean Corpuscular Hemoglobin Concent 32.7, Red Cell Distribution Width 13.0, Platelet Count 352, Neutrophils (%) (Auto) 83.5H, Lymphocytes (%) (Auto) 4.8L, Monocytes (%) (Auto) 8.3H, Eosinophils (%) (Auto) 1.9, Basophils (%) (Auto) 0.2, Neutrophils # (Auto) 7.1, Lymphocytes # (Auto) 0.4L, Monocytes # (Auto) 0.7, Eosinophils # (Auto) 0.2, Basophils # (Auto) 0.0, Large Unclassified Cells % 1.2 , Large Unclassified Cells # 0.1, Anion Gap 9, Glomerular Filtration Rate > 60.0 , Blood Urea Nitrogen 6L, Creatinine 0.40L, Sodium Level 126L, Potassium Level 3.9, Chloride Level 96L, Carbon Dioxide Level 21, Calcium Level 7.9L, Magnesium Level 1.7L 03/12/17 08:17: CBC/BMP Laboratory Tests 03/12/17 05:01 Red Blood Count 3.67 L, Mean Corpuscular Volume 84.5, Mean Corpuscular Hemoglobin 27.6, Mean Corpuscular Hemoglobin Concent 32.7, Red Cell Distribution Width 13.0, Neutrophils (%) (Auto) 83.5 H, Lymphocytes (%) (Auto) 4.8 L, Monocytes (%) (Auto) 8.3 H, Eosinophils (%) (Auto) 1.9, Basophils (%) ( Auto) 0.2, Neutrophils # (Auto) 7.1, Lymphocytes # (Auto) 0.4 L, Monocytes # ( Auto) 0.7, Eosinophils # (Auto) 0.2, Basophils # (Auto) 0.0, Calcium Level 7.9 L Microbiology Microbiology 03/08/17 Blood Culture - Preliminary, Resulted No Growth after 72 hours. All specime... 03/08/17 Blood Culture - Preliminary, Resulted No Growth after 72 hours. All specime... 03/11/17 Gram Stain - Final, Resulted 03/11/17 CSF Culture, Resulted Pending 03/11/17 , Resulted Pending Allergies Coded Allergies: Nickel (Unverified Allergy, Severe, 12/25/15) Home Medications Scheduled (Restasis) 0.05 % Emu, 0.05 % OU DAILY, (Reported) Aspirin (Aspir-81) 81 Mg Tab, 81 MG PO DAILY, (Reported) Calcium (Calcium) 600 Mg Tab, 600 MG PO DAILY, (Reported) Cholecalciferol (Vitamin D) 1,000 Unit Tab, 1,000 UNIT PO DAILY, (Reported) Cyanocobalamin (B-12) 1,000 Mcg Tab, 1,000 MCG PO ASDIRECTED, (Reported) 1xW - WED Gabapentin (Neurontin) 100 Mg Cap, 100 MG PO TID, (Reported) Levocetirizine Hydrochloride (Levocetirizine Dihydrochl) 5 Mg Tab, 5 MG PO DAILY , (Reported) Multivitamins (Ocuvite) 1 Tab Tab, 1 TAB PO DAILY, (Reported) Multivitamins *[facility] STOCKED* (Thera M Plus *[facility] STOCKED*) 1 Tab Tab, 1 TAB PO DAILY, (Reported) Omeprazole (Omeprazole) 40 Mg Cap, 40 MG PO DAILY, (Reported) Potassium Chloride (K-Tab) 10 Meq Tab, 10 MEQ PO DAILY, (Reported) TAKES WITH FUROSEMIDE Prednisone (Prednisone) 5 Mg Tab, 5 MG PO BID, (Reported) Scheduled PRN Albuterol/Ipratropium (Ipratropium [place]/Albut 0.5-2.5 (3) mg/3Ml) 1 Ruthie Ruthie, 3 ML NEB Q2H PRN for SOB/WHEEZING, (Reported) Calcium Carbonate (Tums) 500 Mg Chw, 2,000 MG PO TID PRN for HEARTBURN, ( Reported) Furosemide (Furosemide) 20 Mg Tab, 20 MG PO DAILY PRN for FEET/LEG SWELLING, ( Reported) Naproxen Sodium (Aleve) 220 Mg Tab, 220 MG PO Q8H PRN for PAIN, (Reported) Oxycodone/Acetaminophen (Percocet 5-325 mg) 1 Tab Tab, 1 TAB PO Q6H PRN for PAIN , (Reported) Prochlorperazine (Prochlorperazine Maleate) 5 Mg Tab, 10 MG PO PRN PRN for NAUSEA, (Reported) RAMANA CARLOS PA-C March 12, 2017 09:10
[2017-03-12] MEDS: cefTRIAXone SOD 2 GM in D5W MINI-BAG PLUS 50 ML IV SCH (10:31)
[2017-03-12] MEDS: levETIRAcetam INJection 500 MG in D5W MINI-BAG PLUS 100 ML IV SCH ×2 (10:31→23:39)
[2017-03-12 12:00] VITALS: BP 148/74
[2017-03-12] MEDS ORDERED: TOLVAPTAN 7.5 MG HALF-TAB PO ONE (12:30)
--- NOTE | 2017-03-12 12:43 | IPN ---
DATE: 03/11/2017 Mrs. Garcia seems to be a little bit more awake today. She was able to tell me her name and open her eyes when addressed. She does not seem to be in any discomfort. No nausea, vomiting or diarrhea. She is still lethargic. She is afebrile. Her temperature was last on 03/09/2017, recorded at 102.1 but no fever since then. PHYSICAL EXAMINATION: Temperature is 98.5, pulse 93, respirations 16, blood pressure 178/84, oxygen saturation 96% on room air. HEART: Normal S1, S2, distant. No murmurs. LUNGS: Clear. Diminished at the bases. No wheezes, rales or rhonchi. ABDOMEN: Soft, nontender. EXTREMITIES: She seems to be moving both lower extremities. She has them crossed and it is difficult to have her uncross them. She is able to open her eyes and verbalize her name. She follows commands, squeezing my hands. She was seen in consultation by Dr. Jacob, who felt she had a right hemiparesis, although I was not able to elicit that. There is no nuchal rigidity. No neck stiffness. The patient does not seem to be in any discomfort. LABORATORY DATA: Lumbar puncture done this afternoon shows 132 white cells, 18 red cells, 76% neutrophils, 6% lymphocytes, 16% monocytes, 1% eosinophils, glucose 48, and total protein 111. Gram stain showed few white cells, few red cells, no organisms seen, and encephalitis panel has been sent to Oral. Blood cultures from 03/08/2017 were no growth. IMAGING STUDIES: MRI of the brain done on 03/11/2017 with IV Gadolinium shows no evidence of intracranial parenchymal mass, lesions or enhancement. There is some dural enhancement associated with bilateral subdural hematoma, most conspicuous on the coronal imaging planes. There is no evidence of intracranial metastatic disease. Head CT done on 03/11/2017 shows moderate to large bilateral acute or subacute on subacute subdural hematomas, unchanged from the previous studies which was done 03/08/2017. IMPRESSION: This is a 81-year-old female with a history of lung cancer with metastasis who presented with hemiparesis, mental status changes, and fever. There was a question of seizures. The patient had a lumbar puncture today which is suggestive of some infectious process, possibly encephalitis, although she has more neutrophils, but this happens early in diagnosis of viral encephalitis. She has been treated with Rocephin 2 grams daily prior to the lumbar puncture done and has been started on acyclovir at a dose of 10 mg every eight hours for herpes. We will wait for the patient's results from encephalitis panel in the morning and then followup with neurosurgery whether those subdural hematomas need drainage if there is no improvement. She definitely has improved in the past 24 hours and I do not see an emergent need to be taking her to the operating room (OR) tonight to drain the subdural hematoma.
[2017-03-12] MEDS ORDERED: PANTOPRAZOLE 40MG INJ (PROTONIX) (C9113) IV ONE (12:45)
[2017-03-12 12:53] LABS: ANION GAP 10 MEQ/L (8-16); BLOOD UREA NITROGEN 5 MG/DL (7-18); CARBON DIOXIDE LEVEL 23 MEQ/L (21-32); CHLORIDE LEVEL 93 MEQ/L (98-107); CREATININE FOR GFR 0.41 MG/DL (0.55-1.02); GLOMERULAR FILTRATION RATE > 60.0 (>39); GLUCOSE, FASTING 135 MG/DL (83-110); POTASSIUM SERUM 3.9 MEQ/L (3.5-5.1); SODIUM LEVEL 126 MEQ/L (136-145); URIC ACID 2.1 MG/DL (2.6-6.0)
[2017-03-12] MEDS ORDERED: FUROSEMIDE 40 MG/4 ML VIAL (J1940) IV ONE (13:30)
[2017-03-12 16:00] VITALS: BP 149/73
[2017-03-12 18:51] LABS: ANION GAP 10 MEQ/L (8-16); BLOOD UREA NITROGEN 5 MG/DL (7-18); CARBON DIOXIDE LEVEL 25 MEQ/L (21-32); CHLORIDE LEVEL 92 MEQ/L (98-107); CREATININE FOR GFR 0.37 MG/DL (0.55-1.02); GLOMERULAR FILTRATION RATE > 60.0 (>39); GLUCOSE, FASTING 91 MG/DL (83-110); POTASSIUM SERUM 3.6 MEQ/L (3.5-5.1); SODIUM LEVEL 127 MEQ/L (136-145)
[2017-03-12 20:00] VITALS: BP 165/81
--- NOTE | 2017-03-12 20:03 | IPN ---
DATE: 03/12/2017 Patient seen and examined. No acute events overnight. Continues to be lethargic. Arousable to verbal stimuli. Not following much command. Right upper extremity continues to be weaker. Had no documented fever overnight. Denies any significant pain. VITAL SIGNS: Temperature 97.3, pulse 88, respirations 19, blood pressure 149/73, pulse oximetry 94% on room air. LABORATORY DATA: WBC 8.5, hemoglobin and hematocrit 10.1/31, platelets 352. Chemistry: Sodium 126, potassium 3.9, chloride 93, bicarbonate 23, BUN 5, creatinine 0.41. PHYSICAL EXAMINATION: GENERAL: Patient lethargic but arousable to verbal stimuli in no acute distress. Pupils bilaterally equal and reactive. HEENT: Normocephalic, atraumatic. Pale. NECK: Supple. PULMONARY: Bilaterally clear to auscultation. CARDIAC: Regular rate and rhythm. A 1/6 systolic murmur. ABDOMEN: Soft, nontender, nondistended. EXTREMITIES: No edema, bilateral lower extremities. Patient's right upper extremity seems to be weaker than the left, but exam is limited by patient's mental status. ASSESSMENT AND PLAN: This is a 81-year-old female patient with underlying medical history of small-cell lung cancer with metastasis to liver, rheumatoid arthritis, irritable bowel syndrome, compression fracture of the lumbar spine, thoracic spine, T10, L1, L4, gastroesophageal reflux disease (GERD), chronic obstructive pulmonary disease (COPD), chronic anemia, recurrent falls, difficulty ambulating, osteoporosis, chronic pain, narcotic dependence, neuropathy, vitamin B12 deficiency. Patient was in her usual state of health prior to admission. Was found by family to be confused and lethargic with garbled and mumbled speech. 1. Lethargy, encephalopathy, possibly secondary to infectious versus metabolic encephalopathy versus hygromas of the brain. MRI of the brain without contrast and with gadolinium was done, showing no metastasis, showing bilateral hygromas. Electroencephalogram (EEG) shows metabolic encephalopathy with slowing and no seizure activity. Lumbar puncture was appreciated with questionable infection. After discussing with Dr. Gil, as per Dr. Gil, neurosurgery, hygromas can show up with positive white blood cells (WBC) and DNA polymerase chain reaction for bacterial and viruses has been sent and has been negative. Infectious disease has been consulted. Patient on Rocephin and acyclovir, as per Dr. Butler, infectious disease. Neurology, Dr. Patton, has been consulted as well as neurosurgery, Dr. Gil. Patient has been on Keppra as per neurosurgery, DO NOT RESUSCITATE/DO NOT INTUBATE. Patient is too lethargic to tolerate by mouth. Currently on intravenous (IV) hydration. I discussed with patient's healthcare proxy and family. As per patient's living will, patient would not want to have any artificial tube feeding. Subsequently, no tube feeding was offered. Currently nephrology is consulted for hyponatremia as recommended by neurosurgery to correct electrolyte abnormalities. Patient was given tolvaptan and Lasix by nephrology, fluid management as per tow motor operator, IV hydration. Nothing by mouth for now. Case was discussed with patient's family and healthcare proxy. As per family, the family does not believe patient would want any surgery in terms of neurosurgical intervention, given patient might not even survive, and the risk of the surgery outweighs the benefit. After discussion and as per family, the patient does not tolerate much oral. Will consider comfort measures only. Will have family meetings tomorrow to discuss goals of care. In the meantime, patient will be made DO NOT RESUSCITATE/DO NOT INTUBATE with limited medical intervention, supportive care. 2. 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 Dr. Villalta has discussed the case with patient's oncology nurse practitioner. As of 2 months ago, patient has been in remission. MRI of brain with gadolinium has been negative for metastasis. 3. Rheumatoid arthritis. Patient on chronic immunosuppression, holding oral medication given patient does not tolerate oral medication. Will continue to monitor. 4. Fever of unknown etiology. Case discussed with infectious disease. Fever could be secondary to hygromas. Lumbar puncture has been done. Cerebrospinal fluid (CSF) fluid polymerase chain reaction (PCR) has been appreciated. Patient has been on Rocephin and acyclovir. Possible etiology includes viral. Will continue to follow infectious disease (ID) recommendation. 5. Hyponatremia. Followup urine studies. Nephrology consulted. Given tolvaptan and Lasix. 6. Chronic obstructive pulmonary disease (COPD). Continue current medication. 7. Chronic back pain. Patient seems to be not in any distress. Continue to follow. 8. Chronic hygromas with subacute epidural bleeding. Neurosurgery has been consulted. No change as per Dr. Gil compared to previous studies. EEG is appreciated. Keppra has been ordered. Family would not want any neurosurgical intervention after multiple discussion with the family, given patient is severely weak, and the risk of the procedure outweighs the benefit. 9. Deep vein thrombosis (DVT) prophylaxis. Given subacute epidural hematoma, will elect not to give anticoagulation. Sequential compression devices. DISPOSITION: Multiple comorbidities. Poor overall prognosis. Will have a family meeting to discuss goals of care and comfort measures.
--- NOTE | 2017-03-12 22:52 | CR ---
DATE OF CONSULTATION: 03/12/2017 REASON FOR CONSULTATION: Hyponatremia in this lady with complicated medical problems. HISTORY OF PRESENT ILLNESS: Mrs. Garcia is a 81-year-old female who was admitted to [facility] a few days ago due to altered mentation. She has known history of small-cell lung cancer with metastasis to the liver and brain. She has received chemotherapy and is reportedly in remission. She has known history of chronic subdural hematomas with some acute subdural hematoma. She has developed worsening hyponatremia during her stay in the hospital. Neurosurgical intervention is being discussed, and nephrology was consulted to correct her hyponatremia. PAST MEDICAL HISTORY: Significant for: 1. Small-cell lung cancer with metastasis to liver and brain, status post chemotherapy. 2. Rheumatoid arthritis. 3. Irritable bowel syndrome. 4. Compression fracture of lumbar and thoracic spine. 5. History of gastroesophageal reflux disease. 6. History of chronic obstructive pulmonary disease (COPD). 7. History of anemia. 8. History of recurrent falls with difficulty in ambulation. 9. History of neuropathy. 10. History of osteoporosis. 11. History of chronic subdural hematoma. PAST SURGICAL HISTORY: Significant for: 1. Bilateral carpal tunnel repair. 2. Liver biopsy. 3. Cystoscopy. 4. Tonsillectomy. 5. Dilatation and curettage. 6. Cataract surgery. MEDICATIONS: Her home medications included: - aspirin 81 mg daily - calcium 600 mg daily - vitamin D 1000 units daily - vitamin B12 at 1000 mcg once a week - Senokot one tablet daily - Lasix 20 mg as needed for leg edema - multivitamin one tablet daily - levocetirizine 5 mg daily - omeprazole 40 mg twice a day - Percocet one tablet every 4 hours as needed for pain - potassium chloride 10 mEq daily - prednisone 5 mg twice a day CURRENT MEDICATIONS IN THE HOSPITAL: Include: - IV fluid, normal saline with potassium chloride at 80 mL per hour - ceftriaxone 2 grams every 12 hours - acyclovir 500 mg every 8 hours - <<3:27>> 500 mg every 12 hours - vitamin D 1000 units daily - omeprazole 40 mg daily - DuoNeb every 4 hours as needed - Percocet one tablet every 6 hours as needed for pain - Senokot-S one tablet twice a day - gabapentin 100 mg three times a day - prednisone 5 mg twice a day ALLERGIES: She has reported allergy to nickel. PERSONAL AND SOCIAL HISTORY: The patient is unable to provide any information by herself at present. Reported by admission history and physical, no smoking or alcohol use. FAMILY HISTORY: Negative for lung cancer or kidney problems. REVIEW OF SYSTEMS: The patient is noncommunicative at present and not able to provide any information or answer questions appropriately. PHYSICAL EXAMINATION: This is an elderly female lying in the bed with her mouth open, eyes open, but not interacting. Temperature 98 degrees Fahrenheit, heart rate 88 per minute, respiratory rate 17 per minute, blood pressure 180/79 mm of mercury, and oxygen saturation 95% on room air. Head is atraumatic. Pupils are reactive to light, however, difficult to examine due to the patient's inability to cooperate. Sclerae seem anicteric. Neck is supple, and there is no thyroid enlargement or neck vein distension. Heart sounds are regular. Lungs have moderate bilateral air entry. Abdomen is sunken, nontender. Bowel sounds are present. Extremities have no cyanosis or clubbing. Skin has no rash or ulcers. Neurologically, she is poorly responsive, but her eyes are open, and she is non-interacting at present. LABORATORY DATA: On admission, her sodium level was 129, which improved to 131 yesterday. Today her sodium is down to 126. Potassium is 3.9, chloride 96, CO2 of 21, BUN 6, and creatinine 0.40. Calcium level 7.9 and magnesium 1.7. Her urine studies have been done, which showed a urine osmolality 701 on admission and 561 today. Urine sodium was 160 on admission and 202 today. Urinalysis showed no protein and 2+ blood. She had multiple imaging done, including brain CT scan, MRIs, and chest x-ray. Most recent chest x-ray was on March 09, which did not show any acute infiltrate or effusion. She does have diffuse interstitial fibrosis. Brain MRI showed acute on chronic subdural hematoma but no intracranial metastatic disease. PROBLEMS: 1. Hyponatremia. The patient seems to have chronic hyponatremia, which has worsened during last 24 hours. She has been receiving IV normal saline, and her urine sodium is quite high. The patient is likely to have cerebral salt wasting or inappropriate antidiuretic hormone (ADH) causing her hyponatremia. She is receiving IV normal saline, and intake and output are completely not recorded. There is no urine output recorded, so it is difficult to assess her volume status; however, clinically she does not look volume overload state. In view of her subdural hematomas, syndrome of inappropriate secretion of antidiuretic hormone (SIADH) or cerebral salt wasting is more likely. We will give her a dose of Samsca 7.5 mg today and monitor her electrolytes over next 12 hours. A repeat chemistry is pending at this point, and we will wait for those results. I recommend to continue with current IV fluid, as the patient has very poor oral intake. 2. Hypomagnesemia. This is nutritional and mild. She has already received one dose of magnesium sulfate 1 gram today. I thank you for involving me in the care of Mrs. Garcia. I will follow her along with you.
[2017-03-13] VITALS (7 sets, daily range): BP systolic 115–155; BP diastolic 58–76
[2017-03-13 00:19] LABS: ANION GAP 11 MEQ/L (8-16); BLOOD UREA NITROGEN 5 MG/DL (7-18); CALCIUM LEVEL 8.2 MG/DL (8.8-10.2); CARBON DIOXIDE LEVEL 24 MEQ/L (21-32); CHLORIDE LEVEL 94 MEQ/L (98-107); GLOMERULAR FILTRATION RATE > 60.0 (>39); GLUCOSE, FASTING 97 MG/DL (83-110); MAGNESIUM LEVEL 1.8 MG/DL (1.8-2.4); POTASSIUM SERUM 3.8 MEQ/L (3.5-5.1); SODIUM LEVEL 129 MEQ/L (136-145)
[2017-03-13] MEDS: KCL 20MEQ in NS 1000ML 1,000 ML IV SCH ×2 (03:22→16:36)
[2017-03-13] MEDS: SLF 3 ML SYR IV SCH ×3 (03:23→22:39)
[2017-03-13 05:15] LABS: BASO % 0.4 % (0.0-1.0); EOS # 0.2 K/mm3 (0.0-0.50); EOS % 3.1 % (0.0-3.0); LARGE UNSTAINED CELL # 0.1 K/mm3 (0.0-0.4); LARGE UNSTAINED CELL % 1.1 % (0.0-4.0); LYMPH # 0.6 K/mm3 (1.5-4.5); LYMPH % 6.6 % (24.0-44.0); MEAN CORPUSCULAR HEMOGLOBIN 26.7 pg (27.0-33.0); MEAN CORPUSCULAR HGB CONC 32.5 g/dl (32.0-36.5); MEAN CORPUSCULAR VOLUME 82.1 fl (80.0-96.0); MONO # 0.6 K/mm3 (0.0-0.8); MONO % 7.8 % (0.0-5.0); NEUTROPHILS # 5.9 K/mm3 (1.8-7.7); NEUTROPHILS % 81.1 % (36.0-66.0); PLATELET COUNT, AUTOMATED 365 k/mm3 (150-450); RED CELL DISTRIBUTION WIDTH 13.2 % (11.5-14.5); WHITE BLOOD COUNT 7.3 K/mm3 (4.0-10.0)
[2017-03-13 05:31] LABS: ANION GAP 10 MEQ/L (8-16); BLOOD UREA NITROGEN 6 MG/DL (7-18); CALCIUM LEVEL 8.1 MG/DL (8.8-10.2); CARBON DIOXIDE LEVEL 23 MEQ/L (21-32); CHLORIDE LEVEL 96 MEQ/L (98-107); CREATININE FOR GFR 0.41 MG/DL (0.55-1.02); GLOMERULAR FILTRATION RATE > 60.0 (>39); GLUCOSE, FASTING 80 MG/DL (83-110); POTASSIUM SERUM 3.9 MEQ/L (3.5-5.1); SODIUM LEVEL 129 MEQ/L (136-145)
[2017-03-13] MEDS: SENOKOT S TAB PO SCH ×2 (09:00→21:00)
--- NOTE | 2017-03-13 10:51 | IPN ---
DATE: 03/12/2017 Rebecca seems to be a little more alert today. She can say her name. She has moments where she is more lucid and can answer more than her name but this afternoon when I saw her that is all I could get from her. She has had no fevers in the past 72 hours. She only had fever for 24 hours the first day of admission. She has no nausea, vomiting or diarrhea. She does have soft stools. She denies any pain. No neck stiffness. The patient looks very comfortable laying in bed but she is not verbal. Sodium 127, potassium 3.6, chloride 92, bicarbonate 25, BUN 5, creatinine 0.37, glucose 91, calcium 8. White count is 8.5 down from 13.8 on admission, hemoglobin 10.1, hematocrit 31, platelets 352, 83% neutrophils, 4% lymphocytes, 8% monocytes. Urinalysis had 1 white cell, 20 red cells. Blood cultures were negative times two sets. Cerebrospinal fluid (CSF) culture was negative and CSF polymerase chain reaction (PCR), meningitis, encephalitis panel was negative for herpes 1 and 2, Streptococcus pneumoniae, Streptococcus group B, Neisseria Haemophilus, Listeria, and all other pathogens listed. On physical examination, temperature is 97.3, pulse 88, respirations 19, blood pressure 149/73, oxygen saturation 94% on room air. Heart normal S1, S2. No murmurs. Lungs diminished breath sounds at the bases but clear. Abdomen is soft, nontender. Neck is supple. Only answers to her name. IMPRESSION: 1. Fever with negative workup including negative blood culture, urine culture, chest x-ray. Lumbar puncture showed mild pleocytosis and elevated total protein but CSF panel was negative. The patient has received 5 days of IV Rocephin, has been afebrile for 3 days and all cultures are negative and therefore acyclovir and Rocephin will be discontinued. 2. Hyponatremia, most likely of central origin from hygromas/subdural hematomas. She has been seen by neurosurgery and discussion whether drainage would be of benefit. 3. Mental status changes. Seems to have been acute as the patient used to live on her own. This is still being worked up as whether it is metabolic versus seizure. Dr. Jacob is on the case and I have discussed the case with him. He agrees on discontinuing antibiotic if CSF panel is negative. PLAN: Discontinue IV Rocephin and acyclovir. Monitor for fever or white count. The patient has finished 5 days treatment of empiric antibiotic coverage with ceftriaxone with negative cultures. Chest x-ray was done on 03/09/2017 which was stable with right apical pleural and parenchymal opacity and no new infiltrate and diffuse fibrosis.
[2017-03-13] MEDS: levETIRAcetam INJection 500 MG in D5W MINI-BAG PLUS 100 ML IV SCH ×2 (12:31→23:54)
[2017-03-13 13:46] LABS: ANION GAP 12 MEQ/L (8-16); BLOOD UREA NITROGEN 7 MG/DL (7-18); CALCIUM LEVEL 8.1 MG/DL (8.8-10.2); CARBON DIOXIDE LEVEL 21 MEQ/L (21-32); CHLORIDE LEVEL 96 MEQ/L (98-107); CREATININE FOR GFR 0.35 MG/DL (0.55-1.02); GLOMERULAR FILTRATION RATE > 60.0 (>39); GLUCOSE, FASTING 98 MG/DL (83-110); SODIUM LEVEL 129 MEQ/L (136-145)
[2017-03-14] MEDS ORDERED: FUROSEMIDE 20 MG/2 ML VIAL (J1940) IV ONE
--- NOTE | 2017-03-14 04:16 | IPN ---
DATE OF SERVICE: 03/13/2017 Patient seen and examined. No acute events overnight. Continues to be lethargic, but seems to be a bit more awake. Patient stated that she is not in any pain. Further history not possible. VITAL SIGNS: Temperature 99.1, pulse 92, respirations 18, blood pressure 144/68, pulse oximetry 96% on room air. LABORATORY: WBC 7.3, hemoglobin and hematocrit 9.8/30.3, platelets 365. Chemistry: Sodium 129, potassium 4, chloride 96, bicarbonate 21, BUN 7, creatinine 0.35. PHYSICAL EXAMINATION: GENERAL: Patient lethargic, but arousable to verbal stimuli. Patient denies any pain. Pupils bilaterally equal and reactive. HEENT: Normocephalic, atraumatic. Pale. NECK: Supple. PULMONARY: Bilaterally clear to auscultation. CARDIAC: Regular rate and rhythm. Systolic murmur 1/6. ABDOMEN: Soft, nontender, nondistended. EXTREMITIES: No edema bilateral lower extremities. Patient's right upper extremity seems to be weaker than the left, but exam is limited by patient's mental status. 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 Patient was in her usual state of health prior to admission, was found by family to be confused and lethargic with garbled and mumbled speech. 1. Lethargy, encephalopathy, possibly secondary to infectious versus metabolic encephalopathy versus hygromas of the brain. MRI of the brain appreciated without contrast first and then with gadolinium showing no metastasis, bilateral hygromas and CT scan appreciated. Electroencephalogram (EEG) shows metabolic encephalopathy with slowing and no seizure activity. Lumbar puncture appreciated with questionable infection. As per Dr. Gil, neurosurgery, hygromas can be showing with elevated white blood cells (WBCs). Patient was treated with antibiotics Rocephin, acyclovir. DNA polymerase chain reaction of bacterial and viral encephalitis and meningitis panel was negative. Infectious disease, Dr. Butler, was consulted. Patient treated with Rocephin and acyclovir as per Dr. Butler. Neurology, Dr. Jacob, has also been consulted. Given Keppra as per Dr. Gil. The patient is DO NOT RESUSCITATE/DO NOT INTUBATE. Remains lethargic, too lethargic to tolerate by mouth. Intravenous (IV) hydration has been given and nephrology has been consulted for hyponatremia. As per family and patient's living will, patient does not want any artificial tube feeding. Subsequently, no tube feeding was offered. Currently, nephrology was consulted for hyponatremia, given tolvaptan and Lasix, fluid management as per machine i cutter. Patient nothing by mouth pending speech and swallow. Case was discussed with family. Family elected not to have any surgical option given that patient is in a very poor state to have any surgery and might not even survive the surgery, and with multiple medical problems. Case was discussed with family and family is leaning towards comfort measures, but need to meet with all the other members before a formal decision is made. Patient remains DO NOT RESUSCITATE/DO NOT INTUBATE with limited medical intervention, supportive care. 2. 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 Dr. Villalta has discussed the case with patient's oncology nurse practitioner. As of 2 months ago, patient has been in remission with MRI of the brain with gadolinium being negative, as well as PET. MRI with gadolinium was done during this admission, which was also negative. 3. Rheumatoid arthritis. Patient was on chronic immunosuppressive medication, holding oral medication given patient does not tolerate oral. Will continue to monitor. 4. Fever of unknown etiology. Case discussed with infectious disease. Fever could be secondary to hygromas. Lumbar puncture has been done, appreciated. Cerebrospinal fluid (CSF) fluid polymerase chain reaction has been negative. Was treated with Rocephin and acyclovir as per infectious disease. Further antibiotics and antiviral as per Dr. Butler. 5. Hyponatremia. Followup urine studies. Nephrology has been consulted. Given tolvaptan and Lasix. 6. COPD. Continue current medication. 7. Chronic back pain. Patient seems to be not in any distress. Continue to follow. 8. Chronic hygromas with subacute epidural bleed. Neurosurgery has been consulted. No change as per Dr. Kidwai compared to previous MRIs. EEG has been appreciated. Keppra has been ordered. Family does not want any neurosurgical intervention at this time after multiple discussions with the family given patient is currently severely very weak, not tolerating oral, and the risk of the procedure outweighs the benefit. As per neurology, patient has been walking around with the same level of hygromas in the brain and therefore surgery will most likely not offer any benefit. 9. Deep vein thrombosis (DVT) prophylaxis. Given subacute epidural hematoma, will elect not to anticoagulate the patient. Sequential compression device. DISPOSITION: Multiple comorbidities. Poor overall prognosis. Family is leaning towards comfort measures, but need time to make formal decisions. Currently, DO NOT RESUSCITATE/DO NOT INTUBATE with limited medical intervention.
[2017-03-14 04:30] VITALS: BP 138/64
[2017-03-14 05:36] LABS: WHITE BLOOD COUNT 7.9 K/mm3 (4.0-10.0)
[2017-03-14 05:37] LABS: ANION GAP 13 MEQ/L (8-16); BASO % 0.2 % (0.0-1.0); BLOOD UREA NITROGEN 6 MG/DL (7-18); CALCIUM LEVEL 8.2 MG/DL (8.8-10.2); CARBON DIOXIDE LEVEL 19 MEQ/L (21-32); CHLORIDE LEVEL 96 MEQ/L (98-107); CREATININE FOR GFR 0.37 MG/DL (0.55-1.02); EOS % 3.5 % (0.0-3.0); GLOMERULAR FILTRATION RATE > 60.0 (>39); GLUCOSE, FASTING 66 MG/DL (83-110); LARGE UNSTAINED CELL % 2.4 % (0.0-4.0); MAGNESIUM LEVEL 1.8 MG/DL (1.8-2.4); MEAN CORPUSCULAR HEMOGLOBIN 27.4 pg (27.0-33.0); MEAN CORPUSCULAR HGB CONC 32.7 g/dl (32.0-36.5); MEAN CORPUSCULAR VOLUME 83.9 fl (80.0-96.0); MONO % 10.6 % (0.0-5.0); NEUTROPHILS % 75.2 % (36.0-66.0); PLATELET COUNT, AUTOMATED 394 k/mm3 (150-450); POTASSIUM SERUM 4.2 MEQ/L (3.5-5.1); RED CELL DISTRIBUTION WIDTH 13.3 % (11.5-14.5); SODIUM LEVEL 128 MEQ/L (136-145)
[2017-03-14 05:38] LABS: EOS # 0.3 K/mm3 (0.0-0.50); LARGE UNSTAINED CELL # 0.2 K/mm3 (0.0-0.4); LYMPH # 0.6 K/mm3 (1.5-4.5); MONO # 0.8 K/mm3 (0.0-0.8); NEUTROPHILS # 5.9 K/mm3 (1.8-7.7)
[2017-03-14] MEDS: SLF 3 ML SYR IV SCH ×3 (06:31→22:00)
[2017-03-14] MEDS: SENOKOT S TAB PO SCH ×2 (07:24→20:32)
[2017-03-14 08:00] VITALS: BP 139/65
[2017-03-14] MEDS ORDERED: FUROSEMIDE 20 MG/2 ML VIAL (J1940) IV SCH (09:00)
[2017-03-14] MEDS ORDERED: KCL 20MEQ IN D5/NS 1000ML 1,000 ML IV SCH (10:45)
[2017-03-14] MEDS: levETIRAcetam INJection 500 MG in D5W MINI-BAG PLUS 100 ML IV SCH ×2 (11:28→23:42)
[2017-03-14 12:00] VITALS: BP 162/70
[2017-03-14 16:00] VITALS: BP 145/67
[2017-03-14] MEDS ORDERED: ONDANSETRON 4MG/2ML VIAL (J2405) IV PRN (16:15)
[2017-03-14] MEDS ORDERED: LORazepam 2 MG/ML VIAL (J2060) IV PRN (16:15)
[2017-03-14] MEDS ORDERED: FLEET ENEMA PR PRN (16:15)
[2017-03-14] MEDS ORDERED: BISACODYL 10 MG SUPP PR PRN (16:15)
--- NOTE | 2017-03-14 17:36 | IPN ---
DATE: 03/13/2017 SUBJECTIVE: The patient was seen and examined at the bedside today in the morning. She is unable to communicate. She is awake but barely follows any commands. She is chronically bedridden; however, her sodium number is improving and her sodium is 129 today. REVIEW OF SYSTEMS: The patient is unable to provide any reliable review of systems for me. OBJECTIVE: VITAL SIGNS: Temperature is 98.5 degrees Fahrenheit, blood pressure is 136/72, pulse is 86, respiratory rate of 18, saturating 94% on room air. INTAKE AND OUTPUT: The patient's urine output was 2.5 liters yesterday, 975 mL so far today since overnight. PHYSICAL EXAMINATION: GENERAL: The patient is awake, does not follow commands, lying in bed, no apparent distress. HEAD/NECK: Head is normocephalic, atraumatic. There is temporal wasting. The patient has very dry mucous membranes. A lot of thick, dried secretions in the mouth. Neck is supple. There is no jugular venous distention (JVD). CARDIOVASCULAR: S1, S2, regular rate. No murmur, rub, or gallop. RESPIRATORY: Chest is clear to auscultation bilaterally. Bilateral equal air entry. No rales or rhonchi. ABDOMEN: Soft. Positive bowel sounds. Nontender. No ascites. No organomegaly. EXTREMITIES: The patient likely has contractures of the bilateral lower extremities, and she has weakness of the right arm as well. CENTRAL NERVOUS SYSTEM (BI TESTER): The patient does not follow commands. She is bedridden. She does not communicate. LABORATORY DATA: CBC showed a WBC of 7.3, hemoglobin is 9.8, platelets are 365. Urine random osmolarity was 561 yesterday. Random creatinine was 33.5. Random sodium is 202. BMP showed sodium 129, potassium 4, chloride 96, bicarbonate 21, BUN 7, creatinine 0.3. Calcium was 8.1. CURRENT MEDICATIONS: The patient continues to be on normal saline with 20 mEq of potassium chloride at 60 mL an hour. There is no other change in the medications today. She was given a dose of Lasix 40 mg intravenous (IV) yesterday. ASSESSMENT: A 81-year-old female with a past medical history of subdural hematoma with some acute subdural hematoma. She has a history of small-cell lung cancer with metastasis to liver and brain. Reportedly currently in remission. Nephrology service following the patient for management of hyponatremia. PLAN: 1. Hyponatremia. The patient most likely has syndrome of inappropriate secretion of antidiuretic hormone (SIADH). She is on IV normal saline. She was given a dose of Lasix. She responded well. Her sodium has improved to 129. I would give her another dose of Lasix 20 mg IV tonight. Continue IV fluid at this time. The patient is unable to take oral medications. 2. Anemia. Hemoglobin is 9.8 at this time. The patient is asymptomatic. Continue to monitor for now. No need of Aranesp or blood transfusion at this time. 3. Chronic hygromas with subacute epidural bleeding. No surgical intervention planned at this time in this patient who is terminally ill and debilitated. The rest of the management is as per neurosurgery recommendation.
--- NOTE | 2017-03-14 21:20 | IPN ---
DATE: 03/14/2017 SUBJECTIVE: Patient seen and examined. No acute events overnight. Continues to be lethargic, barely arousable. Not following much command. Minimally verbal. Poor historian. VITAL SIGNS: Temperature 97.9, pulse 97, respirations 18, blood pressure 145/67, pulse oximetry 95% on room air. LABORATORY DATA: WBC 7.9, hemoglobin and hematocrit 10.4 over 31.8, platelets 394. Chemistry: Sodium 128, potassium 4.2, chloride 96, bicarbonate 19, BUN 6, creatinine 0.37. PHYSICAL EXAMINATION: GENERAL: Patient lethargic, pale, barely arousable. HEENT: Normocephalic, atraumatic. NECK: Supple. PULMONARY: Bilaterally clear. Upper respiratory rhonchi. CARDIAC: Regular rate and rhythm. Normal S1, S2. ABDOMEN: Soft, nontender. Positive bowel sounds. EXTREMITIES: No edema bilateral lower extremities. Right upper extremity seems to be weaker than the left. Limited by patient's mental status. NEUROLOGIC: Limited by patient's mental status. 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 The patient was in her usual state of health prior to admission, was found by family to be confused and lethargic with garbled speech and mumbling speech. 1. Lethargy, encephalopathy. Infectious versus metabolic versus hygroma of the brain. MRI of the brain appreciated within and without contrast. Negative for metastasis. Electroencephalogram (EEG) appreciated. Neurosurgery, Dr. Gil consulted. Neurology also, Dr. Jacob consulted. Infectious disease Dr. Butler consulted. Status post lumbar puncture, deoxyribonucleic acid (DNA) polymerase chain reaction has been negative. The patient initially DO NOT RESUSCITATE/DO NOT INTUBATE (DNR/DNI). Treated with acyclovir and Rocephin as per infectious disease. Intravenous (IV) fluids were given. Nephrology was consulted to correct underlying sodium. Unfortunately the patient continued to remain the same, and the case was discussed with family who at this time believe that the patient would not want additional invasive care in terms of surgery. Furthermore, the patient will be a poor candidate for surgery with multiple high risks and neurosurgeon believes that the patient would not benefit much, given the patient's hygroma has been pretty chronic and the patient has been living with it. Currently, given patient has not previously expressed her wish of not wanting tube feeding or is DNR, DNI, case was discussed with the patient's family and proxy and it was mutually agreed that the patient is made comfort measures only. Subsequently, the patient was made comfort measures only (WAREHOUSE SORTER). 2. History of small-cell lung cancer with initial metastasis to the liver and the brain, treated, is currently in remission. MRI of the brain with IV does not show recurrence of metastatic disease. Patient currently WAREHOUSE SORTER. 3. Rheumatoid arthritis. WAREHOUSE SORTER, not tolerating oral. 4. Fever of unknown etiology. Infectious disease initially consulted, treated with Rocephin and acyclovir. Cultures appreciated. CSF appreciated. Patient is currently WAREHOUSE SORTER. Antibiotics discontinued. 5. Hyponatremia. Nephrology consulted. Patient was given Tolvaptan and Lasix with improvement. Currently patient is WAREHOUSE SORTER. Laboratory tests were discontinued. 6. Chronic obstructive pulmonary disease (COPD). Continue current medications. 7. Chronic back pain. Continue pain medication. 8. Chronic hygroma, subacute epidural bleed. Neurosurgery consulted. As per neurosurgery Dr. Gil, the patient does not have any change compared to previous. EEG has been appreciated. Keppra has been ordered. Family does not want neurosurgical intervention given the multiple severe risk factors associated and patient's current poor condition. 9. Deep venous thrombosis (DVT) prophylaxis. Given subacute epidural hematoma, elected not to give the patient anticoagulation. Sequential compression devices as tolerated. DISPOSITION: Multiple comorbidities. Poor overall prognosis. Patient currently WAREHOUSE SORTER.
[2017-03-15] MEDS: SLF 3 ML SYR IV SCH ×3 (05:14→20:27)
[2017-03-15] MEDS: SENOKOT S TAB PO SCH ×2 (08:23→20:27)
[2017-03-15] MEDS: levETIRAcetam INJection 500 MG in D5W MINI-BAG PLUS 100 ML IV SCH ×2 (11:08→23:13)
--- NOTE | 2017-03-15 13:37 | IPN ---
DATE: 03/14/2017 SUBJECTIVE: The patient was seen and examined at the bedside today in the morning. She continues to be on intravenous (IV) fluids. She is much more awake today. She is able to answer some questions. Her renal function is stable. Her sodium is 128 this morning. REVIEW OF SYSTEMS: The patient is unable to provide any reliable review of systems. She answers few questions. She is unable to communicate. OBJECTIVE: VITAL SIGNS: Temperature is 97.9 degrees Fahrenheit, blood pressure is 145/67, pulse is 97, respiratory rate of 18, saturating 95% on room air. INTAKE AND OUTPUT: Urine output recorded as 1300 mL yesterday, 1750 mL so far today since overnight. Weight in the bed scale is 42.5 kg. PHYSICAL EXAMINATION: GENERAL: The patient is awake, follows some commands. Unable to communicate, in no apparent distress at this time. HEAD/NECK: Extraocular muscles intact. Pupils equal, round, and reactive to light. The patient has temporal wasting. Cachectic. Mucous membranes are dry. Actually, she has a lot of dry secretions in her mouth because she is nothing by mouth. Neck is supple. There is no jugular venous distention (JVD). CARDIOVASCULAR: S1, S2. Regular rate. No murmur, rub, or gallop. RESPIRATORY: Chest is clear to auscultation bilaterally. Bilateral equal air entry. No rales or rhonchi. ABDOMEN: Soft. Positive bowel sounds. Nontender. No ascites, no organomegaly. EXTREMITIES: The patient possibly has contracture of the bilateral lower extremities. She barely moves her feet. CENTRAL NERVOUS SYSTEM (LOCAL SALES MANAGER): The patient follows some commands. She is not able to communicate. LABORATORY DATA: CBC showed a WBC 7.9, hemoglobin 10.4, platelets of 394. BMP shows sodium 128, potassium 4.2, chloride 96, bicarbonate 19, BUN 6, creatinine 0.37, calcium 8.2. CURRENT MEDICATIONS: The patient's medications were all reviewed by me. Her IV fluids were changed to dextrose 5% normal saline plus 20 mEq of potassium chloride at 80 mL an hour. The patient got a small dose of Lasix 10 mg IV last night. There is no other change in the medications today. ASSESSMENT: A 81-year-old female who is chronically bedridden. Nephrology service following the patient for management of hyponatremia. PLAN: 1. Hyponatremia. This most likely is syndrome of inappropriate secretion of antidiuretic hormone (SIADH) because of intracranial pathology. The patient is on IV fluids. I have added a small dose of Lasix to keep the urine dilute. Sodium of around 130 would be acceptable for this patient with multiple comorbidities. 2. Hypoglycemia. The patient is nothing by mouth for many days. She is just on normal saline. I have switched the IV fluids to dextrose 5% normal saline with 20 mEq of potassium chloride. 3. Protein calorie malnutrition. The patient is nothing by mouth. She is unable to swallow. Primary team is discussing further goals of care with the patient's family members. DISPOSITION: Primary team is discussing the possibility of making the patient comfort measures only. If the patient is made comfort measures only, then her Lasix and IV fluids can be stopped. Continue current management at this time.
--- NOTE | 2017-03-15 16:58 | IPN ---
DATE: 03/15/2017 Patient is seen and examined. No acute events overnight. Patient is lethargic, but arousable, in no acute distress. Currently comfort measures only. PHYSICAL EXAMINATION: Patient arousable, but not really following commands, in no acute distress. HEENT: Normocephalic, atraumatic. NECK: Supple. PULMONARY: Bilaterally clear. Upper respiratory gurgling has improved. CARDIAC: Regular rate and rhythm, normal S1, S2. ABDOMEN: Soft, nontender, nondistended. EXTREMITIES: Right extremity seems to be paralyzed. NEUROLOGIC: Limited by patient's mental status. 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 The patient's baseline was unstable, in her usual state of health, was found by family to be confused and lethargic with garbled speech and mumbling. 1. Lethargy, encephalopathy. Infectious versus metabolic versus hygroma. MRI of the brain appreciated, electroencephalogram (EEG). MRI with contrast shows no metastasis. Neurosurgery, Dr. Gil, and neurology, Dr. Jacob, has been consulted, as well as infectious disease provider. Lumbar puncture was done, please refer to previous note. Patient currently is comfort measures only. Continue pain medication as ordered. Initially given IV antibiotics as well as antivirals. 2. History of small-cell lung cancer. MRI of the brain with contrast does not show metastasis. Currently comfort measures only. 3. Rheumatoid arthritis. Not tolerating oral. Comfort measures only. 4. Fever of unknown etiology. Patient has been afebrile. Treated with Rocephin and acyclovir initially. Cultures appreciated. Cerebrospinal fluid (CSF) appreciated. Infectious disease doctor initially contacted. Currently comfort measures only. Antibiotics discontinued. 5. Hyponatremia. Nephrology consulted. Given Tolvaptan and Lasix. Currently comfort measures only. Will not repeat additional labs. 6. Chronic back pain. Continue pain medication. 7. Chronic hygroma, subacute epidural bleed. Neurosurgery consulted. As per neurosurgery, Dr. Gil, the imaging study does not show any significant change compared to previous. Keppra is ordered and as per neurosurgery patient is a very poor surgical candidate and less likely to benefit from surgery given the hydromas and subacute epidural bleed has been present previously. 8. Deep venous thrombosis (DVT) prophylaxis. Given subacute epidural bleed will not give the patient anticoagulation. Sequential compression device. DISPOSITION: Patient currently comfort measures only.
[2017-03-16] MEDS: SLF 3 ML SYR IV SCH ×3 (04:50→22:25)
[2017-03-16] MEDS: SENOKOT S TAB PO SCH ×2 (08:02→20:08)
[2017-03-16] MEDS: levETIRAcetam INJection 500 MG in D5W MINI-BAG PLUS 100 ML IV SCH ×2 (13:15→22:25)
--- NOTE | 2017-03-16 16:06 | IPN ---
DATE: 03/16/2017 Patient is seen and examined. No acute events overnight. Patient currently comfort measures only. Comfortable in no acute distress. Barely arousable. PHYSICAL EXAMINATION: Patient lethargic, barely arousable. HEENT: Normocephalic, atraumatic. Pale. PULMONARY: Bilaterally clear to auscultation. CARDIAC: Regular rate and rhythm, normal S1, S2. ABDOMEN: Soft, nontender. Positive bowel sounds. 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 The patient's baseline was unstable in her usual state of health, was found by family to be confused and lethargic with garbled speech and mumbling. 1. Lethargy, encephalopathy. Infectious versus metabolic versus hygroma. MRI of the brain appreciated, electroencephalogram (EEG). MRI with contrast shows no metastasis. Neurosurgery, Dr. Gil consulted. Neurology, Dr. Jacob, has been consulted, as well as infectious disease provider. Lumbar puncture was done, please refer to previous note. Patient initially treated with antibiotics. Currently patient is comfort measures only. Continue medication as ordered. Pain medication as well as scopolamine and atropine. Intimal given antibiotics and antiviral. Infectious disease initially consulted. 2. History of small-cell lung cancer. MRI of the brain with contrast does not show metastasis. Currently comfort measures only. MRI of the brain does not show any recurrent metastasis. Has been in remission since 2 months ago. 3. Rheumatoid arthritis. Not tolerating oral. Comfort measures only. 4. Fever of unknown etiology. Patient has been afebrile. Treated with Rocephin and acyclovir initially. Lumbar puncture was done. Infectious disease was counsleted. Currently comfort measures only. Antibiotics discontinued. Refer to previous note for further information. 5. Hyponatremia. Nephrology consulted. Given Tolvaptan and Lasix. Currently comfort measures only. Will not repeat additional labs. 6. Chronic back pain. Continue pain medication as prescribed. 7. Chronic hygroma with subacute epidural bleed. Neurosurgery consulted. As per neurosurgery, Dr. Gil, the imaging study does not show any significant change compared to previous studies 2 months ago. Keppra has been given to the patient as per neurosurgery. Patient is a poor surgical candidate and less likely to benefit from surgery given the hydromas and subacute epidural bleed has been present previously. Furthermore patient has multiple comorbidities, poor functioning status and case has been discussed with family. Family will not want the patient to have brain surgery in this state of health and does not believe that this is what the patient wanted. 8. Deep venous thrombosis (DVT) prophylaxis. Given subacute epidural. We are not to give any pharmacological anticoagulation. Sequential compression device. DISPOSITION: Patient currently comfort measures only.
[2017-03-17] MEDS: SLF 3 ML SYR IV SCH ×3 (05:03→22:00)
[2017-03-17] MEDS: SENOKOT S TAB PO SCH ×2 (07:17→21:00)
[2017-03-17] MEDS: levETIRAcetam INJection 500 MG in D5W MINI-BAG PLUS 100 ML IV SCH ×2 (11:21→22:54)
[2017-03-18] MEDS: SLF 3 ML SYR IV SCH ×3 (06:00→22:34)
[2017-03-18] MEDS: SENOKOT S TAB PO SCH ×2 (07:00→21:00)
[2017-03-18] MEDS: ACETAMINOPHEN 650 MG SUPP PR PRN (08:19)
[2017-03-18] MEDS: levETIRAcetam INJection 500 MG in D5W MINI-BAG PLUS 100 ML IV SCH ×2 (11:33→23:14)
[2017-03-18] MEDS: MORPHINE 2 MG/ML 1ML SYRINGE IV PRN (21:25)
[2017-03-19] MEDS: SLF 3 ML SYR IV SCH ×3 (04:42→23:01)
[2017-03-19] MEDS: SENOKOT S TAB PO SCH ×2 (08:16→20:08)
[2017-03-19] MEDS: levETIRAcetam INJection 500 MG in D5W MINI-BAG PLUS 100 ML IV SCH ×2 (11:22→23:01)
[2017-03-20] MEDS: MORPHINE 2 MG/ML 1ML SYRINGE IV PRN ×3 (02:30→15:01)
[2017-03-20] MEDS: SCOPOLAMINE 1.5 MG TRANSDERMAL TD PRN (02:30)
[2017-03-20] MEDS: SLF 3 ML SYR IV SCH ×3 (05:01→21:45)
[2017-03-20] MEDS: SENOKOT S TAB PO SCH ×2 (10:21→21:00)
[2017-03-20] MEDS: levETIRAcetam INJection 500 MG in D5W MINI-BAG PLUS 100 ML IV SCH ×2 (10:40→22:03)
[2017-03-20] MEDS: MORPHINE SULFATE ORAL SOLN 10 MG/5 ML UD SL PRN (11:58)
[2017-03-21] MEDS: SLF 3 ML SYR IV SCH ×3 (05:35→21:31)
[2017-03-21] MEDS: SENOKOT S TAB PO SCH ×2 (09:00→21:31)
[2017-03-21] MEDS: levETIRAcetam INJection 500 MG in D5W MINI-BAG PLUS 100 ML IV SCH ×2 (11:19→22:41)
[2017-03-22] MEDS: SLF 3 ML SYR IV SCH ×3 (05:16→20:49)
[2017-03-22] MEDS: SENOKOT S TAB PO SCH ×2 (09:18→20:29)
[2017-03-22] MEDS: levETIRAcetam INJection 500 MG in D5W MINI-BAG PLUS 100 ML IV SCH ×2 (10:22→22:41)
[2017-03-22] MEDS: MORPHINE 2 MG/ML 1ML SYRINGE IV PRN (10:22)
[2017-03-22] MEDS: MORPHINE SULFATE ORAL SOLN 10 MG/5 ML UD SL PRN (15:37)
[2017-03-23] MEDS: SLF 3 ML SYR IV SCH ×3 (05:28→22:37)
[2017-03-23] MEDS: SENOKOT S TAB PO SCH ×2 (09:18→21:00)
--- NOTE | 2017-03-23 11:18 | IPN ---
DATE OF EXAMINATION: 03/23/2017 SUBJECTIVE: This morning, the patient does not respond. She is mumbling to herself in bed. OBJECTIVE: Physical examination is foregone. No new laboratories or imaging. ASSESSMENT AND PLAN: This is an 82-year-old female with small-cell lung cancer with distant metastasis PROBLEMS: Metabolic encephalopathy. Thought to be related to infection versus hygroma. The patient has previously been seen by neurosurgery, neurology, infectious disease. The patient and the family have elected for comfort measures only. At this time, I have placed a Hospice consult, as the patient is likely unable to undergo Hospice care at home but has remained in hospital for several days. Will attempt to coordinate a comfortable disposition for the patient. The patient continued on scopolamine, morphine sublingually, Ativan as needed, atropine as needed.
[2017-03-23] MEDS: levETIRAcetam INJection 500 MG in D5W MINI-BAG PLUS 100 ML IV SCH ×2 (11:20→22:38)
[2017-03-23] MEDS: MORPHINE 2 MG/ML 1ML SYRINGE IV PRN (15:57)
[2017-03-24] MEDS: SCOPOLAMINE 1.5 MG TRANSDERMAL TD PRN (02:53)
[2017-03-24] MEDS: SLF 3 ML SYR IV SCH ×3 (05:38→21:51)
[2017-03-24] MEDS: SENOKOT S TAB PO SCH ×2 (08:18→21:00)
[2017-03-24] MEDS: levETIRAcetam INJection 500 MG in D5W MINI-BAG PLUS 100 ML IV SCH (10:20)
[2017-03-24] MEDS: MORPHINE 2 MG/ML 1ML SYRINGE IV PRN ×3 (10:21→21:51)
[2017-03-25] MEDS: levETIRAcetam INJection 500 MG in D5W MINI-BAG PLUS 100 ML IV SCH ×3 (00:06→23:30)
[2017-03-25] MEDS: MORPHINE 2 MG/ML 1ML SYRINGE IV PRN ×4 (02:58→18:16)
[2017-03-25] MEDS: SLF 3 ML SYR IV SCH ×3 (05:10→21:44)
[2017-03-25] MEDS: SENOKOT S TAB PO SCH ×2 (09:16→20:05)
[2017-03-26] MEDS: SLF 3 ML SYR IV SCH ×3 (06:06→22:00)
[2017-03-26] MEDS: SENOKOT S TAB PO SCH ×2 (09:27→20:09)
[2017-03-26] MEDS: MORPHINE 2 MG/ML 1ML SYRINGE IV PRN (10:45)
[2017-03-26] MEDS: levETIRAcetam INJection 500 MG in D5W MINI-BAG PLUS 100 ML IV SCH ×2 (10:45→22:29)
[2017-03-27] MEDS: SLF 3 ML SYR IV SCH ×3 (06:00→22:39)
[2017-03-27] MEDS: SENOKOT S TAB PO SCH ×2 (08:00→21:08)
[2017-03-27] MEDS: levETIRAcetam INJection 500 MG in D5W MINI-BAG PLUS 100 ML IV SCH ×2 (11:42→22:40)
[2017-03-28] MEDS: SCOPOLAMINE 1.5 MG TRANSDERMAL TD PRN (00:30)
[2017-03-28] MEDS: MORPHINE 2 MG/ML 1ML SYRINGE IV PRN ×2 (04:54→23:09)
[2017-03-28] MEDS: SLF 3 ML SYR IV SCH ×3 (04:55→23:08)
[2017-03-28] MEDS: SENOKOT S TAB PO SCH ×2 (09:00→20:29)
[2017-03-28] MEDS: levETIRAcetam INJection 500 MG in D5W MINI-BAG PLUS 100 ML IV SCH ×2 (12:51→23:09)
[2017-03-29] MEDS: SLF 3 ML SYR IV SCH ×3 (05:02→22:24)
[2017-03-29] MEDS: MORPHINE 2 MG/ML 1ML SYRINGE IV PRN (07:44)
[2017-03-29] MEDS: SENOKOT S TAB PO SCH ×2 (08:52→20:56)
--- NOTE | 2017-03-29 08:57 | IPN ---
DATE OF SERVICE: 03/29/2017 An 82-year-old female seen at bedside briefly. There are no complaints. She is resting, sleeping comfortably. She did receive a dose of morphine earlier today due to her subjectively looking uncomfortable. No overnight issues reported by nursing. OBJECTIVE: She is breathing nonlabored, does not appear to be in any discomfort at this time. No other physical examination performed, and no laboratories are ordered. ASSESSMENT AND PLAN: 1. Metabolic encephalopathy, likely related to underlying disease process. 2. 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 The family was unable to provide care for her at home with the assistance of Hospice. We did have a Hospice consult placed to see if she would be eligible for the [facility]. Unfortunately, we were up against a holiday weekend, and we have not been able make any traction with this. She does continue to fail from a standpoint, and her prognosis is grim/terminal. The family is aware of this. Will continue with comfort measures with scopolamine, morphine, Ativan, atropine as needed. She does have intravenous (IV) Keppra and on board and an IV Marvni for comfort, as well. I will be signing Ms. Garcia out to my counterpart tomorrow. However, patient and family services (PFS) consult is on board with her, as well.
[2017-03-29] MEDS: levETIRAcetam INJection 500 MG in D5W MINI-BAG PLUS 100 ML IV SCH ×2 (11:32→22:24)
[2017-03-30] MEDS: SLF 3 ML SYR IV SCH ×3 (05:06→22:00)
[2017-03-30] MEDS: SENOKOT S TAB PO SCH ×2 (07:55→21:00)
--- NOTE | 2017-03-30 11:17 | IPN ---
DATE: 03/30/2017 I am rounding for the hospitalist today. Ms. Garcia is on comfort measures only status. She was not responding to verbal stimulation and looked comfortable. Her comfort goals are being met at this time.
[2017-03-30] MEDS: levETIRAcetam INJection 500 MG in D5W MINI-BAG PLUS 100 ML IV SCH ×2 (11:42→22:28)
[2017-03-30] MEDS: MORPHINE 2 MG/ML 1ML SYRINGE IV PRN (14:14)
[2017-03-31] MEDS: SLF 3 ML SYR IV SCH ×3 (06:00→22:32)
[2017-03-31] MEDS: SENOKOT S TAB PO SCH ×2 (08:07→20:54)
[2017-03-31] MEDS: levETIRAcetam INJection 500 MG in D5W MINI-BAG PLUS 100 ML IV SCH ×2 (11:02→22:32)
[2017-03-31] MEDS: SCOPOLAMINE 1.5 MG TRANSDERMAL TD PRN (11:03)
[2017-03-31] MEDS: MORPHINE SULFATE ORAL SOLN 10 MG/5 ML UD SL PRN (11:14)
--- NOTE | 2017-03-31 15:20 | IPNPDOC ---
Subjective Date Seen The patient was seen on 03/31/17. Subjective Chief Complaint/HPI The patient is a 82-year-old female admitted with a reason for visit of Stroke; Subdural Hygroma. Assessment /Plan Problems (1) Small cell lung cancer Status: Chronic Problem Text: with metastasis to brain and liver. (2) Comfort measures only status Status: Acute Problem Text: advanced cancer with poor oral intake , failure to thrive and progressive weakness no no further definite treatment available for the primary disease condition . 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 (4) COPD (chronic obstructive pulmonary disease) Status: Chronic (5) Subdural hygroma Status: Chronic (6) Chronic hypercapnic respiratory failure Status: Chronic (7) Rheumatoid arteritis Status: Chronic (8) Compression fx, lumbar spine Status: Acute (9) Severe protein-calorie malnutrition Status: Chronic Problem Text: due to inability to eat. 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
[2017-04-01] MEDS: SLF 3 ML SYR IV SCH ×3 (05:31→22:24)
[2017-04-01] MEDS: SENOKOT S TAB PO SCH ×2 (08:14→20:06)
[2017-04-01] MEDS: levETIRAcetam INJection 500 MG in D5W MINI-BAG PLUS 100 ML IV SCH ×2 (11:35→22:24)
[2017-04-02] MEDS: SLF 3 ML SYR IV SCH ×3 (05:08→22:27)
[2017-04-02] MEDS: MORPHINE 2 MG/ML 1ML SYRINGE IV PRN (05:13)
[2017-04-02] MEDS: SENOKOT S TAB PO SCH ×2 (08:58→20:04)
[2017-04-02] MEDS: levETIRAcetam INJection 500 MG in D5W MINI-BAG PLUS 100 ML IV SCH ×2 (11:49→22:27)
[2017-04-03] MEDS: SLF 3 ML SYR IV SCH ×3 (05:10→22:13)
[2017-04-03] MEDS: SENOKOT S TAB PO SCH ×2 (08:02→20:52)
[2017-04-03] MEDS: levETIRAcetam INJection 500 MG in D5W MINI-BAG PLUS 100 ML IV SCH ×2 (11:44→22:13)
[2017-04-03] MEDS: MORPHINE 2 MG/ML 1ML SYRINGE IV PRN (15:54)
[2017-04-04] MEDS: SCOPOLAMINE 1.5 MG TRANSDERMAL TD PRN (03:23)
[2017-04-04] MEDS: SLF 3 ML SYR IV SCH ×3 (05:34→22:05)
[2017-04-04] MEDS: SENOKOT S TAB PO SCH ×2 (08:24→20:59)
[2017-04-04] MEDS: levETIRAcetam INJection 500 MG in D5W MINI-BAG PLUS 100 ML IV SCH ×2 (11:50→22:06)
[2017-04-05] MEDS: SLF 3 ML SYR IV SCH ×3 (05:12→23:40)
[2017-04-05] MEDS: SENOKOT S TAB PO SCH ×2 (08:40→21:00)
[2017-04-05] MEDS: MORPHINE 2 MG/ML 1ML SYRINGE IV PRN ×3 (08:58→18:20)
[2017-04-05] MEDS: ATROPINE SULFATE 1% OP SOLN 2 ML BTL SL PRN ×2 (12:11→18:20)
[2017-04-05] MEDS: levETIRAcetam INJection 500 MG in D5W MINI-BAG PLUS 100 ML IV SCH ×2 (12:11→23:41)
[2017-04-06] MEDS: MORPHINE 2 MG/ML 1ML SYRINGE IV PRN (06:14)
[2017-04-06] MEDS: SLF 3 ML SYR IV SCH ×3 (06:15→22:55)
[2017-04-06] MEDS: SENOKOT S TAB PO SCH ×2 (07:37→21:00)
[2017-04-06] MEDS: levETIRAcetam INJection 500 MG in D5W MINI-BAG PLUS 100 ML IV SCH ×2 (11:12→22:54)
[2017-04-07] MEDS: SLF 3 ML SYR IV SCH ×3 (05:58→22:18)
[2017-04-07] MEDS: SENOKOT S TAB PO SCH (08:35)
[2017-04-07] MEDS: levETIRAcetam INJection 500 MG in D5W MINI-BAG PLUS 100 ML IV SCH ×2 (11:02→22:18)
[2017-04-08] MEDS: SENOKOT S TAB PO SCH ×3 (04:45→21:20)
[2017-04-08] MEDS: SLF 3 ML SYR IV SCH ×3 (05:17→22:09)
[2017-04-08] MEDS: levETIRAcetam INJection 500 MG in D5W MINI-BAG PLUS 100 ML IV SCH ×2 (11:27→22:09)
[2017-04-08] MEDS: MORPHINE 2 MG/ML 1ML SYRINGE IV PRN (16:17)
[2017-04-09] MEDS: SLF 3 ML SYR IV SCH ×3 (05:45→23:32)
[2017-04-09] MEDS: SENOKOT S TAB PO SCH ×2 (06:58→21:00)
[2017-04-09] MEDS: levETIRAcetam INJection 500 MG in D5W MINI-BAG PLUS 100 ML IV SCH ×2 (11:48→23:31)
[2017-04-09] MEDS: SCOPOLAMINE 1.5 MG TRANSDERMAL TD PRN (11:52)
[2017-04-09] MEDS: MORPHINE 2 MG/ML 1ML SYRINGE IV PRN (11:52)
[2017-04-10] MEDS: SLF 3 ML SYR IV SCH ×3 (06:00→23:20)
[2017-04-10] MEDS: SENOKOT S TAB PO SCH ×2 (08:42→20:12)
[2017-04-10] MEDS: MORPHINE 2 MG/ML 1ML SYRINGE IV PRN ×4 (11:30→23:19)
[2017-04-10] MEDS: levETIRAcetam INJection 500 MG in D5W MINI-BAG PLUS 100 ML IV SCH ×2 (11:31→23:20)
[2017-04-11] MEDS: MORPHINE 2 MG/ML 1ML SYRINGE IV PRN (05:13)
[2017-04-11] MEDS: SLF 3 ML SYR IV SCH ×2 (05:14→14:00)
[2017-04-11] MEDS: SENOKOT S TAB PO SCH (07:43)
[2017-04-11] MEDS: levETIRAcetam INJection 500 MG in D5W MINI-BAG PLUS 100 ML IV SCH (11:00)
--- NOTE | 2017-04-12 22:09 | DSES ---
DATE OF ADMISSION: 03/10/2017 DATE OF DISCHARGE: 04/11/2017 REASON FOR ADMISSION: Stroke-like symptoms. FINAL DIAGNOSES: 1. 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 2. Poor oral intake and failure to thrive. 3. Chronic obstructive pulmonary disease (COPD). 4. Subdural hygroma. 5. Hypercapnic respiratory failure. 6. Rheumatoid arthritis. 7. Lumbar spine compression fracture. 8. Severe protein calorie malnutrition. HISTORY OF PRESENT ILLNESS: The patient was an 82-year-old female who was brought into the hospital by her family because of confusion, altered mental status and garbled speech that started around 05:00 p.m. that day. The patient was in her normal state of health until that morning when she was noted by around 05:00 p.m. to be confused with garbled speech. She was brought into the emergency room. CT of the brain was done which showed bilateral hygromas chronic with some possible chronic epidural bleed which was new compared to previous MRI earlier that year. Dr. Gil from neurosurgery was consulted regarding these new findings. As per his opinion, this was not responsible for her acute altered mental status and did not need any surgical intervention at this point. There was no evidence of any intraparenchymal hemorrhage and infarct. The patient was admitted under hospitalist service. Further imaging MRI and MRA were ordered to rule out any underlying infection causing altered mental status and to rule out any new brain metastasis. HOSPITAL COURSE: Dr. Jacob from neurology was also consulted. He had seen the patient in consultation. He thought altered mental status may be secondary to brain atrophy versus new medication and baseline hyponatremia. The patient was monitored further on telemetry. She underwent an LP in the hospital which was questionable for infection. Dr. Gil continued to follow as well as Dr. Butler from infectious disease who started the patient on Rocephin and Acyclovir. The patient was also started on Keppra per neurosurgery. She continued however to be too lethargic to tolerate any oral intake and was only on IV hydration. Providers had discussed the patient with her family and per the patient's living will she did not want any artificial tube feeds, did not want to be intubated or resuscitated. At this time the patient continued to be managed conservatively with medication only. Dr. 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 The patient continued to be lethargic and not responsive. The family agreed to make the patient comfort measures only and further treatment and investigation were discontinued and she was made comfort measures on 03/14/2017. The patient however remained in the hospital until she on 04/11/2017 from acute respiratory cardiopulmonary arrest.
== END 2017-04-11 11:55 | disposition expired | DRG 64 ==
LOC: M ED 19:32 → M ED INP 21:01 → M PCU 22:39 → OBSVTOIN 03-10 10:12 → M MSPAV 03-14 17:03
PROVIDERS: ADMIT Internal Medicine Nephrology; ATTEND Internal Medicine
PROC: 009U30Z Drainage of Spinal Canal with Drainage Device, Percutaneous Approach (ICD-10-PCS; principal; 2017-03-11)
DX: I62.1 Nontraumatic extradural hemorrhage (principal); G93.41 Metabolic encephalopathy; E43 Unspecified severe protein-calorie malnutrition; E22.2 Syndrome of inappropriate secretion of antidiuretic hormone; J96.12 Chronic respiratory failure with hypercapnia; Z68.1 Body mass index [BMI] 19.9 or less, adult; Z51.5 Encounter for palliative care; Z66 Do not resuscitate; K21.9 Gastro-esophageal reflux disease without esophagitis; G83.84 Todd's paralysis (postepileptic); M06.9 Rheumatoid arthritis, unspecified; E16.2 Hypoglycemia, unspecified; D18.1 Lymphangioma, any site; M80.08XD Age-related osteoporosis with current pathological fracture, vertebra(e), subsequent encounter for fracture with routine healing; G62.9 Polyneuropathy, unspecified; J44.9 Chronic obstructive pulmonary disease, unspecified; E83.42 Hypomagnesemia; R62.7 Adult failure to thrive; Z91.81 History of falling; Z88.8 Allergy status to other drugs, medicaments and biological substances; Z79.82 Long term (current) use of aspirin; Z79.52 Long term (current) use of systemic steroids; Z79.899 Other long term (current) drug therapy; Z92.3 Personal history of irradiation; Z92.21 Personal history of antineoplastic chemotherapy; Z85.05 Personal history of malignant neoplasm of liver; Z85.118 Personal history of other malignant neoplasm of bronchus and lung; Z85.841 Personal history of malignant neoplasm of brain